=== PATIENT | male | born 1935 | race Caucasian/White ===

== ENCOUNTER 2018-04-22 22:05 | Observation (INO) ==
[2018-04-22] MEDS ORDERED: Sod Chloride 0.9% Inj 1,000 ML IV.SIG ONE (22:48)
--- NOTE | 2018-04-22 23:00 | ED ---
HPI General Chief Complaint: Syncope Stated Complaint: Confused Time Seen by Provider: 04/22/18 22:39 Source: patient Mode of arrival: EMS Limitations: altered mental status History of Present Illness HPI narrative: Patient is a 82 year old male who presents to the ER from [facility] for evaluation of syncope with altered mental status. As per [facility], patient is likely usually alert and oriented x4. Patient is currently at the [facility] for rehab after he had a left hip surgery. Patient has a chronic Gilliland catheter in place. As per nurses, patient was sitting in his wheelchair and "passed out for 30 seconds." Patient did not fall out of his wheelchair, he did not suffer any injuries to his head or neck. Reports that after his syncopal episode, patient appeared confused. He is usually alert and oriented x4, currently only alert and oriented x2. Patient is pleasantly confused at bedside, patient thinks that he has at [facility], he thinks that he is currently sitting in the chair but he is actually laying in a stretcher. Patient thinks that this year is 1958, he is only oriented to himself at this time. Patient with no complaints at this time. Related Data Home Medications Medication Instructions Recorded Confirmed No Known Home Medications 04/22/18 04/22/18 Allergies Allergy/AdvReac Type Severity Reaction Status Date / Time No Known Allergies Allergy Verified 04/22/18 22:48 Review of Systems ROS: all other systems reviewed are negative [facility] Medical History Medical History Anemia (Acute) Anxiety (Acute) BBB (bundle branch block) (Acute) Dementia (Acute) Depression (Acute) HTN (hypertension) (Acute) Hyperlipidemia (Acute) Hypokalemia (Acute) Left tibial fracture (Acute) Malignant neoplasm prostate (Acute) Muscle weakness (generalized) (Acute) Surgical History Surgical History History of left hip replacement (Acute) Social History Social History Substance History: No History of Abuse Second Hand Smoke Exposure: No Smoking Status: Never smoker How Often Do You Have a Drink Containing Alcohol: Never Recent Travel in [facility] [place] within the Last 8 Weeks: No Recent Out of Country Travel within the Last 8 Weeks: No Immunization History Tetanus Immunization: Unsure Exam Narrative Exam Narrative: GENERAL: Patient pleasantly confused SKIN: Focused skin assessment warm/dry. HEAD: Atraumatic. Normocephalic. EYES: Pupils equal and round. No scleral icterus. No injection or drainage. ENT: No nasal bleeding or discharge. Mucous membranes pink and moist. NECK: Trachea midline. No JVD. CARDIOVASCULAR: Regular rate and rhythm. No murmur appreciated. RESPIRATORY: No accessory muscle use. Clear to auscultation. Breath sounds equal bilaterally. GASTROINTESTINAL: Abdomen soft, non-tender, nondistended. Hepatic and splenic margins not palpable. GILLILAND CATHETER IN PLACE- CLOUDY URINE MUSCULOSKELETAL: No obvious deformities. No clubbing. No cyanosis. No edema. NEUROLOGICAL: Pleasantly confused. Motor grossly within normal limits. Normal speech. Course Initial Documented Vital Signs Temperature 98.1 F 04/22/18 22:22 Pulse Rate 71 04/22/18 22:22 Respiratory Rate 20 04/22/18 22:22 Blood Pressure 144/70 H 04/22/18 22:22 Pulse Oximetry 100 04/22/18 22:22 Last Documented Vital Signs Temperature 98.1 F 04/22/18 22:22 Pulse Rate 71 04/23/18 00:54 Respiratory Rate 18 04/22/18 22:30 Blood Pressure 132/61 04/22/18 22:30 Pulse Oximetry 100 04/23/18 00:54 Medical Decision Making [facility] Narrative Medical decision making narrative: During the course of the patients emergency department visit, the patients history, examination, and differential diagnosis were reviewed with the patient. The patient was placed on a human services case manager with oximetry and frequent blood pressure monitoring. The patient had an IV access obtained and blood work sent for analysis. The patients laboratory studies were reviewed WBC 8.3, hgb 10.6, hct 30.5, platelets 162 sodium 136, potassium 3.7, bun 28, cr 0.76, glucose 161 trop less than 0.02 UA with large leuk esterase, many white blood cells, few bacteria, urine culture was sent. CT the head shows no acute findings, x-ray of the chest shows no acute findings. Patient with syncopal episode and confusion - most likely from uti, will admit for observation Case reviewed with Dr. Alfaro who accepts pt to service Medical Screen Exam Complete: Yes Emergency Medical Condition: Yes Differential Diagnosis Differential Diagnosis: CVA, TIA, electrolyte abnormality, uti Medical Records Medical records reviewed: Yes I reviewed the patient's medical records. Lab Data Lab results reviewed: Yes I reviewed the patient's lab results. Result diagrams: 04/22/18 22:50 04/22/18 22:50 Lab Results 04/22/18 04/22/18 04/22/18 Range/Units 22:50 22:50 22:50 WBC 8.3 (4.0-11.0) th/mm3 RBC 3.58 L (4.50-5.90) mil/mm3 Hgb 10.6 L (13.0-17.0) gm/dL Hct 30.5 L (39.0-51.0) % MCV 85.2 (80.0-100.0) fL MCH 29.6 (27.0-34.0) pg MCHC 34.7 (32.0-36.0) % RDW 16.7 (11.6-17.2) % Plt Count 162 (150-450) th/mm3 MPV 7.9 (7.0-11.0) fL Neut % (Auto) 85.1 H (16.0-70.0) % Lymph % (Auto) 6.5 L (9.0-44.0) % [place] % (Auto) 7.5 (0.0-8.0) % Eos % (Auto) 0.6 (0.0-4.0) % Baso % (Auto) 0.3 (0.0-2.0) % Neut # (Auto) 7.0 (1.8-7.7) th/mm3 Lymph # (Auto) 0.5 L (1.0-4.8) th/mm3 [place] # (Auto) 0.6 (0.0-0.9) th/mm3 Eos # (Auto) 0.0 (0.0-0.4) th/mm3 Baso # (Auto) 0.0 (0.0-0.2) th/mm3 WBC Differential . Differential Comment Auto diff final PT 10.8 (9.8-11.6) sec INR 1.1 Ratio APTT 24.7 (24.3-30.1) sec Sodium 136 (136-145) meq/L Potassium 3.7 (3.5-5.1) meq/L Chloride 96 L (98-107) meq/L Carbon Dioxide 34.3 H (21.0-32.0) meq/L Anion Gap 6 (5-15) meq/L BUN 28 H (7-18) mg/dL Creatinine 0.76 (0.60-1.30) mg/dL Estimated GFR Greater than 89 (>89) mL/min Random Glucose 161 H (74-106) mg/dL Calcium 9.2 (8.5-10.1) mg/dL Magnesium 2.0 (1.5-2.5) mg/dL Troponin I Less than 0.02 L (0.02-0.05) ng/mL Urine Color (Yellw/Straw) Urine Clarity (Clear) Urine pH (5.0-8.5) Ur Specific [place] (1.002-1.035) Urine Protein (Neg-Trace) mg/dL Urine Glucose (UA) (Negative) mg/dL Urine Ketones (Negative) mg/dL Urine Occult Blood (Negative) Urine Nitrate (Negative) Urine Bilirubin (Negative) Urine Urobilinogen (Less than 2) mg/dL Ur Leukocyte Esterase (Negative) Urine RBC (0-3) /hpf Urine WBC (0-5) /hpf Urine WBC Clumps (None) Ur Squamous Epith Cells (0-5) /hpf Ur Renal Epithelial Cell (None) /hpf Urine Bacteria (None) /hpf Urine Mucus (Occasional) /lpf Urine Yeast (None) /hpf Micro UA Comment Ur Microscopic Review Urine Culture Comments 04/22/18 Range/Units 23:00 WBC (4.0-11.0) th/mm3 RBC (4.50-5.90) mil/mm3 Hgb (13.0-17.0) gm/dL Hct (39.0-51.0) % MCV (80.0-100.0) fL MCH (27.0-34.0) pg MCHC (32.0-36.0) % RDW (11.6-17.2) % Plt Count (150-450) th/mm3 MPV (7.0-11.0) fL Neut % (Auto) (16.0-70.0) % Lymph % (Auto) (9.0-44.0) % [place] % (Auto) (0.0-8.0) % Eos % (Auto) (0.0-4.0) % Baso % (Auto) (0.0-2.0) % Neut # (Auto) (1.8-7.7) th/mm3 Lymph # (Auto) (1.0-4.8) th/mm3 [place] # (Auto) (0.0-0.9) th/mm3 Eos # (Auto) (0.0-0.4) th/mm3 Baso # (Auto) (0.0-0.2) th/mm3 WBC Differential Differential Comment PT (9.8-11.6) sec INR Ratio APTT (24.3-30.1) sec Sodium (136-145) meq/L Potassium (3.5-5.1) meq/L Chloride (98-107) meq/L Carbon Dioxide (21.0-32.0) meq/L Anion Gap (5-15) meq/L BUN (7-18) mg/dL Creatinine (0.60-1.30) mg/dL Estimated GFR (>89) mL/min Random Glucose (74-106) mg/dL Calcium (8.5-10.1) mg/dL Magnesium (1.5-2.5) mg/dL Troponin I (0.02-0.05) ng/mL Urine Color Ramonita (Yellw/Straw) Urine Clarity Turbid H (Clear) Urine pH 6.0 (5.0-8.5) Ur Specific [place] 1.015 (1.002-1.035) Urine Protein 100 H (Neg-Trace) mg/dL Urine Glucose (UA) Negative (Negative) mg/dL Urine Ketones Negative (Negative) mg/dL Urine Occult Blood Large H (Negative) Urine Nitrate Negative (Negative) Urine Bilirubin Negative (Negative) Urine Urobilinogen 2.0 H (Less than 2) mg/dL Ur Leukocyte Esterase Large H (Negative) Urine RBC 177 H (0-3) /hpf Urine WBC (0-5) /hpf Urine WBC Clumps Many H (None) Ur Squamous Epith Cells 4 (0-5) /hpf Ur Renal Epithelial Cell 1 (None) /hpf Urine Bacteria Few H (None) /hpf Urine Mucus Many H (Occasional) /lpf Urine Yeast Many H (None) /hpf Micro UA Comment Cath-culture ind Ur Microscopic Review Not Reportable Urine Culture Comments Cath-cult indicated Imaging Data Attestation: I personally reviewed and interpreted this imaging study as follows : Radiologist's impression: Chest X-Ray 04/22/18 22:48 CONCLUSION: No infiltrates seen. Limited quality exam. Head CT 04/22/18 22:48 CONCLUSION: 1. No acute findings in the brain. 2. Moderate severity central and cortical atrophy. . ECG Data EKG Prior to Arrival: No Attestation: I personally reviewed and interpreted this ECG as follows: Prior ECG tracings: not available for review Interpretation: EKG at 2221: SR at 68bpm, qt/qtc: 425/443, rbbb Discharge Plan Discharge Disposition Patient Disposition: 30 Still Patient Discharge Condition Condition: Stable Discharge Details Diagnosis: Syncope, Acute UTI, Delirium Physicians Team ED Provider: Nani Quiroz Primary Care Provider: Adriano Denton Rxs /Orders / Referrals /Forms Prescriptions: No Action No Known Home Medications RF: 0 Discharge Interventions Interventions: Vital Signs Last Done: 04/22/18 22:30 Status ED Status: With Doctor
--- NOTE | 2018-04-22 23:25 | XR ---
EXAM DATE: 04/22/2018 11:16 PM EDT AGE/SEX: 82 years / Male INDICATIONS: Syncope. CLINICAL DATA: This is the patient's initial encounter. Patient reports that signs and symptoms have been present for 1 day and indicates a pain score of 0/10. MEDICAL/SURGICAL HISTORY: Hypertension. Dementia. Anemia. Bundle branch block. None. COMPARISON: No prior exams available for comparison. FINDINGS: Mild patient rotation towards the right and blurring of the image due to patient motion. The lungs ar e symmetrically aerated. No definite infiltrates seen. The heart is normal in size. Both hemidiaphrag ms are well delineated. CONCLUSION: No infiltrates seen. Limited quality exam. Electronically signed by: Humphrey Timmons MD 04/22/2018 11:24 PM EDT
[2018-04-22 23:34] LABS: Baso % (Auto) 0.3 % (0.0-2.0); Eos % (Auto) 0.6 % (0.0-4.0); Hematocrit 30.5 % (39.0-51.0); Hemoglobin 10.6 gm/dL (13.0-17.0); Lymph # (Auto) 0.5 th/mm3 (1.0-4.8); Lymph % (Auto) 6.5 % (9.0-44.0); Mean Corpuscular HGB Conc 34.7 % (32.0-36.0); Mean Corpuscular Hemoglobin 29.6 pg (27.0-34.0); Mean Corpuscular Volume 85.2 fL (80.0-100.0); Mean Platelet Volume 7.9 fL (7.0-11.0); Mono # (Auto) 0.6 th/mm3 (0.0-0.9); Mono % (Auto) 7.5 % (0.0-8.0); Neut % (Auto) 85.1 % (16.0-70.0); Platelet Count 162 th/mm3 (150-450); Red Blood Count 3.58 mil/mm3 (4.50-5.90); Red Cell Distribution Width 16.7 % (11.6-17.2); White Blood Count 8.3 th/mm3 (4.0-11.0)
[2018-04-22 23:46] LABS: Activated Partial Thrombo Time 24.7 sec (24.3-30.1); INR 1.1 Ratio; Prothrombin Time 10.8 sec (9.8-11.6)
[2018-04-22 23:47] LABS: Bacteria,Urine Few /hpf; Bilirubin,Urine Negative (Negative); Clarity,Urine Turbid (Clear); Color,Urine Amber (Yellw/Straw); Glucose,Urine (UA) Negative (Negative); Leukocyte Esterase,Urine Large (Negative); Mucus,Urine Many /lpf (Occasional); Nitrite,Urine Negative (Negative); Renal Epithelial Cells,Urine 1 /hpf; Specific Gravity,Urine 1.015 (1.002-1.035); Squamous Epithelial Cell,Urine 4 /hpf (0-5)
--- NOTE | 2018-04-22 23:50 | CT ---
EXAM DATE: 04/22/2018 11:37 PM EDT AGE/SEX: 82 years / Male INDICATIONS: Altered mental status; possible syncopal episode. CLINICAL DATA: This is the patient's initial encounter. Patient reports that signs and symptoms have been present for 1 day and indicates a pain score of Nonresponsive. MEDICAL/SURGICAL HISTORY: Carcinoma, prostatic. Anemia. Cardiovascular disease. Dementia None. RADIATION DOSE: 66.34 CTDI (mGy) COMPARISON: No prior exams available for comparison. TECHNIQUE: CT of the head without contrast. Using automated exposure control and adjustment of the mA and/or kV according to patient size, radiation dose was kept as low as reasonably achievable to ob tain optimal diagnostic quality images. DICOM format image data is available electronically for revi ew and comparison. FINDINGS: Cerebrum: The ventricles, sulci, and basal cisterns are prominent, characteristic of moderate severi ty central cortical atrophy. There is also hypodensity in the supratentorial white matter, characteri stic of ischemic demyelination.. No evidence of midline shift, mass lesion, hemorrhage or acute infa rction. No extraaxial fluid collections are seen. Posterior Fossa: The cerebellum and brainstem are intact. The 4th ventricle is midline. The cerebe llopontine angle is unremarkable. Extracranial: The visualized portion of the orbits is intact. Skull: The calvaria is intact. No evidence of skull fracture. CONCLUSION: 1. No acute findings in the brain. 2. Moderate severity central and cortical atrophy. . Electronically signed by: Humphrey Timmons MD 04/22/2018 11:49 PM EDT
[2018-04-23 00:01] LABS: Anion Gap 6 meq/L (5-15); Blood Urea Nitrogen 28 mg/dL (7-18); Calcium 9.2 mg/dL (8.5-10.1); Carbon Dioxide 34.3 meq/L (21.0-32.0); Chloride 96 meq/L (98-107); Glomerular Filtration Rate Greater Than 89 mL/min (>89); Glucose,Random 161 mg/dL (74-106); Potassium 3.7 meq/L (3.5-5.1); Sodium 136 meq/L (136-145)
[2018-04-23] MEDS ORDERED: Bisacodyl 10 MG Supp RECTAL PRN (01:24)
[2018-04-23] MEDS: Sod Chloride 0.9% Inj 1,000 ML IV.CONT SCH ×2 (02:44→17:48)
--- NOTE | 2018-04-23 04:04 | P.HPIM ---
History of Present Illness Primary Care Physician: Adriano Denton MD History of Present Illness: 82-year-old male retirement resident with history of dementia, recent history of left hip surgery, chronic Yanez catheter, who presents with episode of syncope and altered mental status from [facility] and rehab. Patient was reported to have passed out in his wheelchair for 30 seconds without falling out of wheelchair. Patient noted subsequently to be confused. History obtained from discussion with the ER physician and chart review patient is currently pleasantly confused. Denies any pain. Does not know why he is here. Says he is at [facility]. Review of Systems unobtainable due to mental condition PMFSH - History History Provided By: Senior Technical Recruiter / EMT - Medical History Medical History: Medical History (Last Reviewed 04/23/18 @ 03:56 by Pj Alfaro MD) Anemia Anxiety BBB (bundle branch block) Dementia Depression HTN (hypertension) Hyperlipidemia Hypokalemia Left tibial fracture Malignant neoplasm prostate Muscle weakness (generalized) - Surgical History Surgical History: Surgical History (Last Reviewed 04/23/18 @ 03:56 by Pj Alfaro MD) History of left hip replacement - Family History Family History: Family History (Last Updated 04/23/18 @ 03:56 by Pj Alfaro MD) Other Family circumstance - Tobacco History Second Hand Smoke Exposure: No Smoking Status: Never smoker - Alcohol History How Often Do You Have a Drink Containing Alcohol: Never - Substance Use History Substance History: No History of Abuse - Travel History Recent Travel in the [place] Within the Last 8 Weeks: No Recent Travel Out of the Country Within the Last 8 Weeks: No - Immunization History Tetanus Immunization: Unsure Medications and Allergies Active Medications: Active Medications Al Hydroxide/Mg Hydroxide (Milk Of Magnesia Liq) 30 ml PO Q12H PRN PRN Reason: Mild Constipation Bisacodyl (Dulcolax Supp) 10 mg RECTAL DAILY PRN PRN Reason: SEVERE CONSITIPATION Ceftriaxone Sodium 1,000 mg/ (Sodium Chloride) 100 mls @ 200 mls/hr IV.SIG Q24H REHAN Sodium Chloride (Ns Inj) 1,000 mls @ 75 mls/hr IV.CONT .[id number] REHAN Last Admin: 04/23/18 02:44 Dose: 75 mls/hr Lactulose (Lactulose Liq) 30 ml PO DAILY PRN PRN Reason: SEVERE CONSITIPATION Sennosides (Senokot) 17.2 mg PO Q12H PRN PRN Reason: Moderate Constipation Sodium Chloride (Ns Flush) 2 ml IV.FLUSH PRN PRN PRN Reason: FLUSH AFTER USING IV ACCESS Allergies Allergy/AdvReac Type Severity Reaction Status Date / Time No Known Allergies Allergy Verified 04/22/18 22:48 Home Medications Medication Instructions Recorded Confirmed Type amlodipine 10 mg PO DAILY 04/23/18 04/23/18 History ascorbic acid (vitamin C) 500 mg PO DAILY NEB 04/23/18 04/23/18 History ascorbic acid (vitamin C) [Vitamin 250 mg PO BID 04/23/18 04/23/18 History C] aspirin 81 mg PO DAILY 04/23/18 04/23/18 History atorvastatin 10 mg PO DAILY 04/23/18 04/23/18 History docusate sodium 100 mg PO DAILY 04/23/18 04/23/18 History duloxetine 20 mg PO BID 04/23/18 04/23/18 History lorazepam [Ativan] 0.5 mg PO HS 04/23/18 04/23/18 History losartan-hydrochlorothiazide 1 tab PO DAILY 04/23/18 04/23/18 History memantine-donepezil [Namzaric] 1 cap PO DAILY 04/23/18 04/23/18 History metoprolol tartrate 12.5 mg PO BID 04/23/18 04/23/18 History omega 4-sfd-xuc-fish oil [Fish Oil] 1,000 mg PO DAILY 04/23/18 04/23/18 History potassium chloride 10 meq PO DAILY 04/23/18 04/23/18 History zinc sulfate 220 mg PO DAILY 04/23/18 04/23/18 History Exam Vital signs: Vital Signs 04/22/18 22:22 04/22/18 22:30 04/23/18 00:54 Temperature 98.1 F Pulse Rate 71 74 71 Respiratory Rate 20 18 Blood Pressure 144/70 H 132/61 Pulse Oximetry 100 98 100 04/23/18 02:40 Temperature 97.7 F Pulse Rate 71 Respiratory Rate 18 Blood Pressure 142/63 H Pulse Oximetry 95 Intake & Output 04/22/18 04/22/18 04/23/18 06:59 18:59 06:59 Intake Total 1100 / 1100 Balance 1100 / 1100 Weight 90.718 kg Intake: IV 1100 / 1100 NS Inj 1,000 ML @ Wide Open IV. 1000 / 1000 SIG BOLUS ONE Rx#:[id number] Rocephin Inj 1,000 MG In NS Inj 100 / 100 100 ML @ 200 mls/hr IV.SIG ONCE ONE Rx#:[id number] Other: Date of Last Bowel Movement 04/23/18 Narrative: GENERAL: Patient lying in bed. Appears comfortable. Alert. Oriented x2 SKIN: Warm and dry. HEAD: Atraumatic. Normocephalic. EYES: Pupils equal and round. No scleral icterus. No injection or drainage. ENT: No nasal bleeding or discharge. Mucous membranes pink and moist. NECK: Trachea midline. No JVD. CARDIOVASCULAR: Regular rate and rhythm. RESPIRATORY: No accessory muscle use. Clear to auscultation. Breath sounds equal bilaterally. GASTROINTESTINAL: Abdomen soft, non-tender, nondistended. Hepatic and splenic margins not palpable. MUSCULOSKELETAL: Extremities without clubbing, cyanosis, or edema. No obvious deformities. Patient with subcentimeter sacral ulcer NEUROLOGICAL: Awake and alert. No obvious cranial nerve deficits. Motor grossly within normal limits. Five out of 5 muscle strength in the arms and legs. Normal speech. PSYCHIATRIC: Appropriate mood and affect; insight and judgment normal. Results - Labs CBC & Chem 7: 04/22/18 22:50 04/22/18 22:50 Labs: Short CBC 04/22/18 Range/Units 22:50 WBC 8.3 (4.0-11.0) th/mm3 Hgb 10.6 L (13.0-17.0) gm/dL Hct 30.5 L (39.0-51.0) % Plt Count 162 (150-450) th/mm3 BMP 04/22/18 22:50 Sodium 136 Potassium 3.7 Chloride 96 L Carbon Dioxide 34.3 H BUN 28 H Creatinine 0.76 Calcium 9.2 Cardiac Enzymes 04/22/18 Range/Units 22:50 Troponin I Less than 0.02 L (0.02-0.05) ng/mL Urine 04/22/18 Range/Units 23:00 Urine Color Ramonita (Yellw/Straw) Urine Clarity Turbid H (Clear) Urine pH 6.0 (5.0-8.5) Ur Specific [place] 1.015 (1.002-1.035) Urine Protein 100 H (Neg-Trace) mg/dL Urine Glucose (UA) Negative (Negative) mg/dL - Imaging Impressions Chest X-Ray 04/22/18 22:48 CONCLUSION: No infiltrates seen. Limited quality exam. Head CT 04/22/18 22:48 CONCLUSION: 1. No acute findings in the brain. 2. Moderate severity central and cortical atrophy. . Caprini VTE Risk Assessment Caprini VTE Risk Assessment: Moderate/High Risk (score >= 2) Caprini Risk Assessment Model: Point Value = 1 Point Value = 2 Point Value = 3 Point Value = 5 Age 41-60 Minor surgery BMI > 25 kg/m2 Swollen legs Varicose veins or History of unexplained or recurrent spontaneous Oral contraceptives or hormone replacement Sepsis (< 1 month) Serious lung disease, including pneumonia (< 1 month) Abnormal pulmonary function Acute myocardial infarction Congestive heart failure (< 1 month) History of inflammatory bowel disease Medical patient at bed rest Age 61-74 Arthroscopic surgery Major open surgery (> 45 min) Laparoscopic surgery (> 45 min) Malignancy Confined to bed (> 72 hours) Immobilizing plaster cast Central venous access Age >= 75 History of VTE Family history of VTE Factor V Leiden Prothrombin [id number] Lupus anticoagulant Anticardiolipin antibodies Elevated serum homocysteine Heparin-induced thrombocytopenia Other congenital or acquired thrombophilia Stroke (< 1 month) Elective arthroplasty Hip, pelvis, or leg fracture Acute spinal cord injury (< 1 month) Prophylaxis Regimen: Total Risk Factor Score Risk Level Prophylaxis Regimen 0-1 Low Early ambulation 2 Moderate Order ONE of the following: *Sequential Compression Device (SCD) *Heparin 5000 units SQ BID 3-4 Higher Order ONE of the following medications: *Heparin 5000 units SQ TID *Enoxaparin/Lovenox 40 mg SQ daily (WT < 150 kg, CrCl > 30 mL/min) *Enoxaparin/Lovenox 30 mg SQ daily (WT < 150 kg, CrCl > 10-29 mL/min) *Enoxaparin/Lovenox 30 mg SQ BID (WT < 150 kg, CrCl > 30 mL/min) AND/OR *Sequential Compression Device (SCD) 5 or more Highest Order ONE of the following medications: *Heparin 5000 units SQ TID (Preferred with Epidurals) *Enoxaparin/Lovenox 40 mg SQ daily (WT < 150 kg, CrCl > 30 mL/min) *Enoxaparin/Lovenox 30 mg SQ daily (WT < 150 kg, CrCl > 10-29 mL/min) *Enoxaparin/Lovenox 30 mg SQ BID (WT < 150 kg, CrCl > 30 mL/min) AND *Sequential Compression Device (SCD) Assessment and Plan - Plan //Altered mental status -History of dementia Likely secondary to significant UTI. -CT head with no acute findings. Does show chronic atrophy Treat UTI as below. //UTI //Chronic Yanez. Grossly positive urinalysis, white blood cell clumps. -Yanez exchanged in the ER. Start on ceftriaxone. Follow-up urine culture. //Hypertension. Chronic. Blood pressure acceptable. Continue home medications as necessary. //Dementia. Chronic with acute worsening. Continue home medications. Discussed Condition With: Patient, nurse, ED physician.
[2018-04-23] MEDS: Metoprolol Tartrate 25 MG Tablet PO SCH ×2 (08:59→22:03)
[2018-04-23] MEDS: amLODIPine 10 MG Tablet PO SCH (08:59)
[2018-04-23] MEDS ORDERED: MEMANTINE DONEPEZIL PO SCH (09:00)
[2018-04-23] MEDS ORDERED: Non-Formulary Drug (Losartan-Hydrochlorothiazide [Losartan-Hydrochlorothiazide] 1 TAB) PO SCH (09:00)
--- NOTE | 2018-04-23 14:24 | ECG ---
Date Performed: 04/22/2018 Time Performed: 22:21:40 PTAGE: 82 years EKG: Sinus rhythm WITH SINUS ARRHYTHMIA RIGHT BUNDLE BRANCH BLOCK ABNORMAL ECG NO PREVIOUS TRACING DOCTOR: Marvin Tai Interpretating Date/Time 04/23/2018 14:22:43
[2018-04-24] MEDS: Sod Chloride 0.9% Inj 1,000 ML IV.CONT SCH ×2 (04:48→20:01)
[2018-04-24 05:40] LABS: Baso % (Auto) 0.4 % (0.0-2.0); Eos # (Auto) 0.1 th/mm3 (0.0-0.4); Eos % (Auto) 2.2 % (0.0-4.0); Hematocrit 25.7 % (39.0-51.0); Hemoglobin 9.1 gm/dL (13.0-17.0); Lymph # (Auto) 0.5 th/mm3 (1.0-4.8); Lymph % (Auto) 10.5 % (9.0-44.0); Mean Corpuscular HGB Conc 35.6 % (32.0-36.0); Mean Corpuscular Hemoglobin 29.8 pg (27.0-34.0); Mean Corpuscular Volume 83.5 fL (80.0-100.0); Mean Platelet Volume 7.5 fL (7.0-11.0); Mono # (Auto) 0.4 th/mm3 (0.0-0.9); Neut # (Auto) 3.8 th/mm3 (1.8-7.7); Neut % (Auto) 78.9 % (16.0-70.0); Platelet Count 136 th/mm3 (150-450); Red Blood Count 3.07 mil/mm3 (4.50-5.90); Red Cell Distribution Width 16.5 % (11.6-17.2); White Blood Count 4.8 th/mm3 (4.0-11.0)
[2018-04-24 06:11] LABS: Alanine Aminotransferase 14 U/L (12-78); Albumin 2.2 g/dL (3.4-5.0); Anion Gap 7 meq/L (5-15); Aspartate Aminotransferase 21 U/L (15-37); Blood Urea Nitrogen 13 mg/dL (7-18); Calcium 9.1 mg/dL (8.5-10.1); Carbon Dioxide 29.3 meq/L (21.0-32.0); Chloride 101 meq/L (98-107); Glomerular Filtration Rate Greater Than 89 mL/min (>89); Glucose,Random 129 mg/dL (74-106); Potassium 3.2 meq/L (3.5-5.1); Sodium 137 meq/L (136-145)
[2018-04-24 06:15] LABS: Alkaline Phosphatase 109 U/L (45-117); Total Protein 5.3 g/dL (6.4-8.2)
[2018-04-24] MEDS: amLODIPine 10 MG Tablet PO SCH (08:56)
[2018-04-24] MEDS: Metoprolol Tartrate 25 MG Tablet PO SCH ×2 (08:57→20:01)
--- NOTE | 2018-04-24 10:27 | P.PN ---
Subjective Interval history: In bed still confused however pleasant. Since he is in [place] at the rehab place. He pulled Bean yesterday and patient is with hematuria however fairly good urine output. No fever or chills. Denies any chest pain or shortness of breath. He is resting in bed and appears to not acute distress at this time. was visiting earlier. Physical Exam Vital signs: Vital Signs 04/23/18 12:00 04/23/18 16:00 04/23/18 19:40 Temperature 97.7 F 97.6 F 97.6 F Pulse Rate 70 73 76 Respiratory Rate 20 20 19 Blood Pressure 93/49 L 150/70 H 138/65 Pulse Oximetry 98 97 98 04/23/18 20:00 04/24/18 00:00 04/24/18 04:00 Temperature 98.4 F 98.1 F Pulse Rate 60 60 Respiratory Rate 19 18 Blood Pressure 129/63 154/67 H Pulse Oximetry 98 97 98 04/24/18 08:30 Temperature 97.5 F L Pulse Rate 62 Respiratory Rate 14 Blood Pressure 161/67 H Pulse Oximetry 94 L Intake & Output 04/23/18 04/24/18 04/24/18 18:59 06:59 18:59 Intake Total 1000 / 1000 1100 / 1100 Output Total 450 / 450 1200 / 1200 Balance 550 / 550 1100 / 1100 -1200 / -1200 Intake: IV 1000 / 1000 1100 / 1100 NS Inj 1,000 ML @ 75 mls/hr IV. 1000 / 1000 1000 / 1000 CONT .[id number] [facility] Rx#:[id number] Rocephin Inj 1,000 MG In NS Inj 100 / 100 100 ML @ 200 mls/hr IV.SIG Q24H [facility] Rx#:[id number] Output: Urine Amount (Catheter) 450 / 450 1200 / 1200 Indwelling Urethral Catheter 450 / 450 1200 / 1200 Other: Date of Last Bowel Movement 04/23/18 04/23/18 Narrative: GENERAL: Patient lying in bed. Appears comfortable. Alert. Oriented x2 CARDIOVASCULAR: Regular rate and rhythm. RESPIRATORY: No accessory muscle use. Clear to auscultation. Breath sounds equal bilaterally. GASTROINTESTINAL: Abdomen soft, non-tender, nondistended. Hepatic and splenic margins not palpable. MUSCULOSKELETAL: Extremities without clubbing, cyanosis, or edema. No obvious deformities. Patient with subcentimeter sacral ulcer NEUROLOGICAL: Awake and alert. No obvious cranial nerve deficits. Motor grossly within normal limits. Five out of 5 muscle strength in the arms and legs. Normal speech. PSYCHIATRIC: Appropriate mood and affect; insight and judgment normal. - Urinary Catheter Management Indwelling Urethral Catheter Cath placed during this visit: yes Reason for continuing: Gross Hematuria Insertion date: 04/22/18 Insertion time: 23:00 Results - Labs CBC & Chem 7: 04/24/18 05:15 04/24/18 05:15 Laboratory Results - last 24 hr 04/22/18 04/24/18 04/24/18 23:00 05:15 05:15 WBC 4.8 RBC 3.07 L Hgb 9.1 L Hct 25.7 L MCV 83.5 MCH 29.8 MCHC 35.6 RDW 16.5 Plt Count 136 L MPV 7.5 Neut % (Auto) 78.9 H Lymph % (Auto) 10.5 [place] % (Auto) 8.0 Eos % (Auto) 2.2 Baso % (Auto) 0.4 Neut # (Auto) 3.8 Lymph # (Auto) 0.5 L [place] # (Auto) 0.4 Eos # (Auto) 0.1 Baso # (Auto) 0.0 WBC Differential . Differential Comment Auto diff final Sodium 137 Potassium 3.2 L Chloride 101 Carbon Dioxide 29.3 Anion Gap 7 BUN 13 Creatinine 0.44 L Estimated GFR Greater than 89 Random Glucose 129 H Calcium 9.1 Total Bilirubin 0.6 AST 21 ALT 14 Alkaline Phosphatase 109 Total Protein 5.3 L Albumin 2.2 L Urine Color Ramonita Urine Clarity Turbid H Urine pH 6.0 Ur Specific [place] 1.015 Urine Protein 100 H Urine Glucose (UA) Negative Urine Ketones Negative Urine Occult Blood Large H Urine Nitrate Negative Urine Bilirubin Negative Urine Urobilinogen 2.0 H Ur Leukocyte Esterase Large H Urine RBC 177 H Urine WBC Urine WBC Clumps Many H Ur Squamous Epith Cells 4 Ur Renal Epithelial Cell 1 Urine Bacteria Few H Urine Mucus Many H Urine Yeast Many H Micro UA Comment Cath-culture ind Urine Culture Comments Cath-cult indicated Microbiology 04/22/18 23:00 Catheterized Urine Urine Culture - Final Escherichia coli Multidrug Resistant Assessment and Plan - Plan Altered mental status -History of dementia Likely secondary to significant UTI. -CT head with no acute findings. Does show chronic atrophy Treat UTI as below. UTI with Chronic [place]. Grossly positive urinalysis, white blood cell clumps. -Bean exchanged in the ER. Start on ceftriaxone. Follow-up urine culture with E coli - Continue IV as patient still confused Hematuria from traumatic bean . Patient did pull bean yesterday 04/23. Has adequate urine UP , monitor Will consult urology if need Monitor H.H, so far stable Vision change. Patient noted with anisocoria . repeat CT head w/o contrast . Consult neurology for further evaluation. patient doesn't have a h/o stroke. neuro checks Cont IVF Telemetry Hypertension. Chronic. Blood pressure acceptable. Continue home medications as necessary. Hypokalemia: Replace and continue to monitor. Dementia. Chronic with acute worsening. Continue home medications. Discussed Condition With: Patient, nurse
[2018-04-24] MEDS: Magnesium Oxide 400 MG Tablet PO SCH (13:04)
--- NOTE | 2018-04-24 17:02 | CT ---
EXAM DATE: 04/24/2018 4:59 PM EDT AGE/SEX: 82 years / Male INDICATIONS: Visual disturbances. CLINICAL DATA: This is the patient's initial encounter. Patient reports that signs and symptoms have been present for 1 day and indicates a pain score of 3/10. MEDICAL/SURGICAL HISTORY: Anemia. Hypertension. Malignant neoplasm. None. RADIATION DOSE: 56.35 CTDI (mGy) COMPARISON: [facility] [place]AST, 04/22/2018. . TECHNIQUE: CT of the head without contrast. Using automated exposure control and adjustment of the mA and/or kV according to patient size, radiation dose was kept as low as reasonably achievable to ob tain optimal diagnostic quality images. DICOM format image data is available electronically for revi ew and comparison. FINDINGS: The examination demonstrates cortical atrophy and microvascular ischemic demyelinative change. There is no acute intracranial hemorrhage. No abnormal extra-axial fluid collections are seen. No mass lesi on is identified. The appearance of the posterior fossa is unremarkable. The orbits are intact. The sinuses are clear. The mastoid air cells are clear. No acute skull fractur e is seen. CONCLUSION: 1. Cortical atrophy and microvascular ischemic demyelinative change. This is stable compared to prev ious of 04/22/2018. Electronically signed by: Eh Dias MD 04/24/2018 5:01 PM EDT
--- NOTE | 2018-04-24 19:59 | MB ---
cc: Elisa Sanchez MD DATE: 04/24/2018 REASON FOR CONSULTATION: Anisocoria. HISTORY OF PRESENT ILLNESS: This is an 82-year-old man with dementia who comes in with an episode of syncope and altered mental status from a senior care. He reportedly passed out in his wheelchair for 30 seconds, confused. He has a past medical history of dementia, bundle branch block, anxiety, depression, hypertension, hyperlipidemia, left hip surgery recently. I am asked to evaluate him for anisocoria. The right eye is slightly larger than the left. The patient does state he has had cataract surgery. He denies any loss of vision, double vision or any pain of the eyes. PHYSICAL EXAMINATION: VITAL SIGNS: Temperature 98.2, pulse 64, respiratory rate 20, blood pressure 117/59. NEUROLOGIC: He is awake and alert. He knows himself and he thinks he is in [place]. His right pupil is 1 mm, reactive. Left pupil is 0.5, reactive. Extraocular muscles are intact. Visual thurman seem full. There is no facial asymmetry. Speech is normal. No ptosis. Motor georges, I do not appreciate any significant weakness. There may be some residual from the left hip. His left leg is externally deviated but DTRs are normal. Toes are downgoing. Gait is withheld. LABORATORY DATA: Reviewed. His white count is 4.8, hemoglobin 9.1, platelets 136,000. Coags are normal. Chemistry: Potassium 3.2, glucose 129, albumin 2.2. Urine has a UTI with E. coli, multidrug resistant. IMPRESSION: Anisocoria. It may be multifactorial. I will just get an MRI of the brain. His vision seems to be fine. Continue him on baby aspirin. He does not have any stroke-like symptoms. Certainly, he can be followed as an outpatient with ophthalmology. MD CHAD Hernández/sonia , 05:57 PM , 06:04 PM
[2018-04-25] MEDS: Sod Chloride 0.9% Inj 1,000 ML IV.CONT SCH (06:51)
[2018-04-25 07:26] LABS: Baso % (Auto) 0.6 % (0.0-2.0); Eos # (Auto) 0.1 th/mm3 (0.0-0.4); Eos % (Auto) 2.5 % (0.0-4.0); Hemoglobin 9.5 gm/dL (13.0-17.0); Lymph # (Auto) 0.6 th/mm3 (1.0-4.8); Lymph % (Auto) 12.4 % (9.0-44.0); Mean Corpuscular HGB Conc 35.1 % (32.0-36.0); Mean Corpuscular Hemoglobin 29.2 pg (27.0-34.0); Mean Corpuscular Volume 83.2 fL (80.0-100.0); Mean Platelet Volume 7.8 fL (7.0-11.0); Mono # (Auto) 0.3 th/mm3 (0.0-0.9); Mono % (Auto) 6.7 % (0.0-8.0); Neut # (Auto) 3.6 th/mm3 (1.8-7.7); Neut % (Auto) 77.8 % (16.0-70.0); Platelet Count 153 th/mm3 (150-450); Red Blood Count 3.24 mil/mm3 (4.50-5.90); Red Cell Distribution Width 16.8 % (11.6-17.2); White Blood Count 4.6 th/mm3 (4.0-11.0)
[2018-04-25 07:45] LABS: Anion Gap 6 meq/L (5-15); Blood Urea Nitrogen 10 mg/dL (7-18); Calcium 8.9 mg/dL (8.5-10.1); Carbon Dioxide 29.9 meq/L (21.0-32.0); Chloride 101 meq/L (98-107); Glomerular Filtration Rate Greater Than 89 mL/min (>89); Glucose,Random 105 mg/dL (74-106); Magnesium 1.7 mg/dL (1.5-2.5); Potassium 3.5 meq/L (3.5-5.1); Sodium 137 meq/L (136-145)
[2018-04-25] MEDS: Magnesium Oxide 400 MG Tablet PO SCH (08:47)
[2018-04-25] MEDS: amLODIPine 10 MG Tablet PO SCH (08:47)
[2018-04-25] MEDS: Metoprolol Tartrate 25 MG Tablet PO SCH ×2 (08:48→21:21)
--- NOTE | 2018-04-25 12:48 | MR ---
EXAM DATE: 04/25/2018 12:43 PM EDT AGE/SEX: 82 years / Male INDICATIONS: Altered mental status. Left eye pupil is smaller than the right. CLINICAL DATA: This is the patient's subsequent encounter. Patient reports that signs and symptoms h ave been present for 3 days and indicates a pain score of 0/10. MEDICAL/SURGICAL HISTORY: Dementia. Hypertension. Carcinoma, prostatic. . Left hip replacemen t. COMPARISON: [facility] – [place], [place] HEAD W/O CONTRAST, 04/24/2018. . TECHNIQUE: Multiplanar, multisequence examination of the brain was performed without contrast. FINDINGS: Motion artifact. Cerebrum: The ventricles are prominent. Areas of high FLAIR abnormality are seen in the periventricu lar white matter. No evidence of midline shift, mass lesion, hemorrhage or acute infarction. No ext raaxial fluid collections are seen. The pituitary gland and suprasellar cistern are normal in config uration. White Matter: Scattered T2 signal abnormalities are seen in the white matter. Posterior Fossa: The cerebellum and brainstem are intact. The 4th ventricle is midline. The cerebel lopontine angle is unremarkable. The cerebellar tonsils are normal in position. Diffusion Imaging: No focal areas of restricted diffusion are seen. No evidence of acute infarction . Extracranial: The visualized portions of the orbits and paranasal sinuses are unremarkable. CONCLUSION: 1. Cerebral atrophy and chronic ischemic small vessel vasculopathy. 2. No acute infarction. Electronically signed by: Alex Jean MD 04/25/2018 12:47 PM EDT
--- NOTE | 2018-04-25 13:19 | P.PN ---
Subjective Interval history: The patient is in bed he feels very tired. Says he has some pain in his buttocks at the wounds. No fever or chills. Still with change in vision patient needs to follow-up with ophthalmology as outpatient. Plan for MRI of the brain. The patient was. Denies having chest pain or shortness of breath. No abdominal pain. Still pleasantly confused. also at bedside Physical Exam Vital signs: Vital Signs 04/24/18 16:10 04/24/18 19:51 04/24/18 21:01 Temperature 98.2 F 98.6 F Pulse Rate 64 63 Respiratory Rate 20 18 Blood Pressure 117/59 L 145/66 H Pulse Oximetry 97 97 95 04/25/18 00:00 04/25/18 04:00 04/25/18 07:10 Temperature 98.8 F 98.7 F Pulse Rate 69 60 62 Respiratory Rate 18 17 18 Blood Pressure 144/65 H 136/65 156/68 H Pulse Oximetry 97 97 96 04/25/18 11:14 Temperature 98.4 F Pulse Rate 67 Respiratory Rate 18 Blood Pressure 141/62 H Pulse Oximetry 96 Intake & Output 04/24/18 04/25/18 04/25/18 18:59 06:59 18:59 Intake Total 1220 / 1220 460 / 460 Output Total 1625 / 1625 350 / 350 Balance -405 / -405 110 / 110 Intake: IV 1000 / 1000 100 / 100 NS Inj 1,000 ML @ 75 mls/hr IV. 1000 / 1000 CONT .[id number] [facility] Rx#:[id number] Rocephin Inj 1,000 MG In NS Inj 100 / 100 100 ML @ 200 mls/hr IV.SIG Q24H [facility] Rx#:[id number] Oral 220 / 220 360 / 360 Output: Urine Amount (Catheter) 1625 / 1625 350 / 350 Indwelling Urethral Catheter 1625 / 1625 350 / 350 Other: Date of Last Bowel Movement 04/23/18 Narrative: GENERAL: Patient lying in bed. Appears comfortable. Alert. Oriented x2 CARDIOVASCULAR: Regular rate and rhythm. HEENT: Anisocoria. RESPIRATORY: No accessory muscle use. Clear to auscultation. Breath sounds equal bilaterally. GASTROINTESTINAL: Abdomen soft, non-tender, nondistended. Hepatic and splenic margins not palpable. MUSCULOSKELETAL: Extremities without clubbing, cyanosis, or edema. No obvious deformities. Patient with subcentimeter sacral ulcer NEUROLOGICAL: Awake and alert. No obvious cranial nerve deficits. Motor grossly within normal limits. Five out of 5 muscle strength in the arms and legs. Normal speech. PSYCHIATRIC: Appropriate mood and affect; insight and judgment normal. - Urinary Catheter Management Indwelling Urethral Catheter Cath placed during this visit: yes Reason for continuing: Gross Hematuria Insertion date: 04/22/18 Insertion time: 23:00 Results - Labs CBC & Chem 7: 04/25/18 06:40 04/25/18 06:40 Laboratory Results - last 24 hr 04/25/18 04/25/18 06:40 06:40 WBC 4.6 RBC 3.24 L Hgb 9.5 L Hct 27.0 L MCV 83.2 MCH 29.2 MCHC 35.1 RDW 16.8 Plt Count 153 MPV 7.8 Neut % (Auto) 77.8 H Lymph % (Auto) 12.4 [place] % (Auto) 6.7 Eos % (Auto) 2.5 Baso % (Auto) 0.6 Neut # (Auto) 3.6 Lymph # (Auto) 0.6 L [place] # (Auto) 0.3 Eos # (Auto) 0.1 Baso # (Auto) 0.0 WBC Differential . Differential Comment Auto diff final Sodium 137 Potassium 3.5 Chloride 101 Carbon Dioxide 29.9 Anion Gap 6 BUN 10 Creatinine 0.43 L Estimated GFR Greater than 89 Random Glucose 105 Calcium 8.9 Magnesium 1.7 - Imaging Impressions Head CT 04/24/18 00:00 CONCLUSION: 1. Cortical atrophy and microvascular ischemic demyelinative change. This is stable compared to previous of 04/22/2018. Head MRI 04/25/18 07:04 CONCLUSION: 1. Cerebral atrophy and chronic ischemic small vessel vasculopathy. 2. No acute infarction. Assessment and Plan - Plan Altered mental status -History of dementia Likely secondary to significant UTI. -CT head with no acute findings. Does show chronic atrophy Treat UTI as below. UTI with Chronic Bean. Grossly positive urinalysis, white blood cell clumps. -Bean exchanged in the ER. Start on ceftriaxone. Follow-up urine culture with E coli - Continue IV as patient still confused Hematuria from traumatic bean . Patient did pull bean yesterday 04/23. Has adequate urine UP , monitor Will consult urology if need Monitor H.H, so far stable Vision change. Patient noted with anisocoria. repeat CT head w/o contrast . Consult neurology for further evaluation. patient doesn't have a h/o stroke. neuro checks Cont gentle IVF Telemetry Plan for MRI of the brain Patient also to follow-up with ophthalmology as outpatient Hypertension. Chronic. Blood pressure acceptable. Continue home medications as necessary. Hypokalemia: Replace and continue to monitor. Dementia. Chronic with acute worsening. Continue home medications. Chronic pressure wounds present on admission. Turn q@hrs . Consult wound care Discussed Condition With: Patient, nurse, at bedside. Discharge plan pending the improvement. Plan for MRI brain, patient with anisocoria. Possible discharge in 1 to days if able to eat
--- NOTE | 2018-04-25 14:29 | P.PNWCN ---
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 Apply hydrogel to fill in wound with 100% fascia visualized in wound base (to keep fascia moist). Apply skin prep to periwound (skin surrounding wound). Place cover dressing of Optifoam gentle border. Date dressing Every 2 hours and PRN for comfort: Please reposition patient from left to right sides. Additional information: Patient seen in [facility] for wound evaluation of sacrum. Wound/Pressure Injury - Patient Status Premedicated for Pain Prior to Dressing Change: No - Wound Sacrum Wound Staging: Stage IV Wound Type: Pressure Injury Is This a Chronic Wound: Yes Requested from Provider a Wound Care Consult: Yes (Dr Alfaro) Length (cm): 1.1 (cm) Width (cm): 1 (cm) Depth (cm): 0.4 (cm) Wound Bed Appearance: White Wound Bed Appearance: Wound is 100% fascia, moist, not actively draining and no odor noted. Wound margins are visualized with epibole circumferentially. Periwound is thickened with a washboard appearance. Drainage Amount: None Drainage Odor: No Odor Dressing Status: Changed Cleansing Solution: Saline Primary Dressing: Optifoam AG Tape Type: Paper Wound Dressing Change Date: 04/25/18 (dressing obtained was all that was available at the time until orders for hydrogel and optifoam gentle could be obtained from physician.)
[2018-04-26] MEDS: Sod Chloride 0.9% Inj 1,000 ML IV.CONT SCH (01:04)
[2018-04-26 06:03] LABS: Baso % (Auto) 0.7 % (0.0-2.0); Eos # (Auto) 0.1 th/mm3 (0.0-0.4); Eos % (Auto) 1.6 % (0.0-4.0); Hemoglobin 10.4 gm/dL (13.0-17.0); Lymph # (Auto) 0.5 th/mm3 (1.0-4.8); Lymph % (Auto) 9.1 % (9.0-44.0); Mean Corpuscular HGB Conc 33.5 % (32.0-36.0); Mean Corpuscular Hemoglobin 28.8 pg (27.0-34.0); Mean Corpuscular Volume 85.8 fL (80.0-100.0); Mean Platelet Volume 8.1 fL (7.0-11.0); Mono # (Auto) 0.4 th/mm3 (0.0-0.9); Mono % (Auto) 8.2 % (0.0-8.0); Neut # (Auto) 4.3 th/mm3 (1.8-7.7); Neut % (Auto) 80.4 % (16.0-70.0); Platelet Count 175 th/mm3 (150-450); Red Blood Count 3.61 mil/mm3 (4.50-5.90); Red Cell Distribution Width 16.8 % (11.6-17.2); White Blood Count 5.4 th/mm3 (4.0-11.0)
[2018-04-26 06:31] LABS: Anion Gap 7 meq/L (5-15); Blood Urea Nitrogen 7 mg/dL (7-18); Calcium 9.4 mg/dL (8.5-10.1); Carbon Dioxide 31.3 meq/L (21.0-32.0); Chloride 99 meq/L (98-107); Glomerular Filtration Rate Greater Than 89 mL/min (>89); Glucose,Random 122 mg/dL (74-106); Potassium 3.1 meq/L (3.5-5.1); Sodium 137 meq/L (136-145)
--- NOTE | 2018-04-26 08:31 | P.DS ---
Date of admission: 04/23/18 01:34 Primary care physician: Adriano Denton MD Brief History from admission: 82-year-old male [place] [facility] resident with history of dementia, recent history of left hip surgery, chronic Bean catheter, who presents with episode of syncope and altered mental status from [facility] and rehab. Patient was reported to have passed out in his wheelchair for 30 seconds without falling out of wheelchair. Patient noted subsequently to be confused. History obtained from discussion with the ER physician and chart review patient is currently pleasantly confused. Denies any pain. Does not know why he is here. Says he is at [facility]. DS: Diagnosis - Discharge Diagnosis (1) Acute UTI Status: Acute (2) Delirium Status: Acute (3) Syncope Status: Acute DS: Medications - Discharge Medications Prescriptions: ciprofloxacin HCl 500 mg PO Q12H #10 tab DS: Summary Hospital Course: Altered mental status, improved and back at his baseline mentation -History of dementia Likely secondary to significant UTI. -CT head with no acute findings. Does show chronic atrophy Treat UTI as below. UTI with Chronic Bean. with E coli Grossly positive urinalysis, white blood cell clumps. -Bean exchanged in the ER. Received IV abx ceftriaxone. Follow-up urine culture with E coli Hematuria from traumatic bean . Patient did pull bean 04/23. Urine is clearing up. Consider urology consult if need Has adequate urine UP , monitor Will consult urology if need Monitor H.H, so far stable Vision change. Patient noted with anisocoria. repeat CT head w/o contrast . Consult neurology for further evaluation. patient doesn't have a h/o stroke. neuro checks Cont gentle IVF Telemetry MRI of the brain no stroke Patient also to follow-up with ophthalmology as outpatient Hypertension. Chronic. Blood pressure acceptable. Continue home medications as necessary. Hypokalemia: Replace and continue to monitor. Dementia. Chronic with acute worsening. Continue home medications. Patient improved Chronic pressure wounds present on admission. Turn q2hrs . Consult wound care. To follow up with wound care Patient improved. DC home in stable condition to follow up as OP with PCP and consultants - Time Spent with Patient Total time spent providing and/or coordinating discharge services: Greater than 30 minutes Exam Vital signs: Vital Signs 04/25/18 11:14 04/25/18 16:00 04/25/18 18:30 Temperature 98.4 F 98.2 F Pulse Rate 67 65 Respiratory Rate 18 Blood Pressure 141/62 H 146/62 H Pulse Oximetry 96 96 96 04/25/18 19:49 04/25/18 20:00 04/26/18 00:00 Temperature 98.7 F 98.7 F Pulse Rate 68 76 72 Respiratory Rate 20 17 Blood Pressure 172/79 H 165/76 H Pulse Oximetry 96 94 L 04/26/18 07:19 04/26/18 08:20 Temperature 98.5 F Pulse Rate 62 Respiratory Rate 12 Blood Pressure 133/63 Pulse Oximetry 95 95 Intake & Output 04/25/18 04/26/18 04/26/18 18:59 06:59 18:59 Intake Total 700 / 700 580 / 580 Output Total 2800 / 2800 1999 Balance -2100 / -2100 -1420 / -1420 Weight 90.718 kg Intake: IV 100 / 100 Rocephin Inj 1,000 MG In NS Inj 100 / 100 100 ML @ 200 mls/hr IV.SIG Q24H [facility] Rx#:[id number] Oral 700 / 700 480 / 480 Output: Urine Amount (Catheter) 2800 / 2800 1999 Indwelling Urethral Catheter 2800 / 2800 1999 Other: Date of Last Bowel Movement 04/23/18 04/23/18 # Bowel Movements 1 Narrative: GENERAL: Patient lying in bed. Appears comfortable. Alert. Oriented x2 CARDIOVASCULAR: Regular rate and rhythm. HEENT: Anisocoria. RESPIRATORY: No accessory muscle use. Clear to auscultation. Breath sounds equal bilaterally. GASTROINTESTINAL: Abdomen soft, non-tender, nondistended. Hepatic and splenic margins not palpable. MUSCULOSKELETAL: Extremities without clubbing, cyanosis, or edema. No obvious deformities. Patient with subcentimeter sacral ulcer NEUROLOGICAL: Awake and alert. No obvious cranial nerve deficits. Motor grossly within normal limits. Five out of 5 muscle strength in the arms and legs. Normal speech. PSYCHIATRIC: Appropriate mood and affect; insight and judgment normal. Results Procedures completed during hospitalization: none Labs on day of discharge: Labs from last 24 hours 04/26/18 04/26/18 04:31 04:31 WBC 5.4 RBC 3.61 L Hgb 10.4 L Hct 31.0 L MCV 85.8 MCH 28.8 MCHC 33.5 RDW 16.8 Plt Count 175 MPV 8.1 Neut % (Auto) 80.4 H Lymph % (Auto) 9.1 [place] % (Auto) 8.2 H Eos % (Auto) 1.6 Baso % (Auto) 0.7 Neut # (Auto) 4.3 Lymph # (Auto) 0.5 L [place] # (Auto) 0.4 Eos # (Auto) 0.1 Baso # (Auto) 0.0 WBC Differential . Differential Comment Auto diff final Sodium 137 Potassium 3.1 L Chloride 99 Carbon Dioxide 31.3 Anion Gap 7 BUN 7 Creatinine 0.38 L Estimated GFR Greater than 89 Random Glucose 122 H Calcium 9.4 - Impressions ITS Impressions Chest X-Ray 04/22/18 22:48 CONCLUSION: No infiltrates seen. Limited quality exam. Head CT 04/24/18 00:00 CONCLUSION: 1. Cortical atrophy and microvascular ischemic demyelinative change. This is stable compared to previous of 04/22/2018. Head MRI 04/25/18 07:04 CONCLUSION: 1. Cerebral atrophy and chronic ischemic small vessel vasculopathy. 2. No acute infarction. Discharge Plan - Discharge Disposition Patient Disposition: 03 Discharge to SNF - Discharge Condition Condition: Stable - Discharge Order Discharge Orders: Discharge Order (Routine); Ordered 04/26/18 Ordered By: Alana Bliss - Discharge Details Anticipated Discharge Date: 04/26/18 - Physicians Team Primary Care Provider: Adriano Denton Attending Provider: Alana Bliss [facility] ; Elisa Sanchez MD
[2018-04-26] MEDS: amLODIPine 10 MG Tablet PO SCH (09:23)
[2018-04-26] MEDS: Metoprolol Tartrate 25 MG Tablet PO SCH (09:25)
[2018-04-26] MEDS: Magnesium Oxide 400 MG Tablet PO SCH (09:25)
== END 2018-04-26 11:16 ==
LOC: NEDA 22:05 → NEPC 22:05 → NEPFCDU 04-23 02:24
PROVIDERS: ADMIT Hospitalist; ATTEND Hospitalist

== ENCOUNTER 2018-05-01 16:39 | Observation (INO) ==
[2018-05-01] MEDS ORDERED: Sod Chloride 0.9% Inj 1,000 ML IV.SIG SCH ×2 (17:00)
--- NOTE | 2018-05-01 17:14 | XR ---
EXAM DATE: 05/01/2018 5:09 PM EST AGE/SEX: 82 years / Male INDICATIONS: Fever. CLINICAL DATA: This is the patient's initial encounter. Patient reports that signs and symptoms have been present for 1 day and indicates a pain score of Nonresponsive. MEDICAL/SURGICAL HISTORY: Non-responsive. Non-responsive. [place] [facility] [place]. . FINDINGS: Increased density is seen in both lung bases. Mid-upper lung thurman are clear. Heart and mediastinal structures are unremarkable. CONCLUSION: Mild basilar opacity which may represent developing airspace disease. Electronically signed by: Tacho Troy MD 05/01/2018 5:12 PM EST
[2018-05-01 17:30] LABS: Baso % (Auto) 0.1 % (0.0-2.0); Hematocrit 26.9 % (39.0-51.0); Hemoglobin 9.3 gm/dL (13.0-17.0); Lymph # (Auto) 0.3 th/mm3 (1.0-4.8); Lymph % (Auto) 6.4 % (9.0-44.0); Mean Corpuscular HGB Conc 34.6 % (32.0-36.0); Mean Corpuscular Hemoglobin 30.3 pg (27.0-34.0); Mean Corpuscular Volume 87.5 fL (80.0-100.0); Mean Platelet Volume 7.8 fL (7.0-11.0); Mono # (Auto) 0.3 th/mm3 (0.0-0.9); Neut # (Auto) 3.7 th/mm3 (1.8-7.7); Neut % (Auto) 87.5 % (16.0-70.0); Platelet Count 149 th/mm3 (150-450); Red Blood Count 3.08 mil/mm3 (4.50-5.90); Red Cell Distribution Width 17.4 % (11.6-17.2); White Blood Count 4.2 th/mm3 (4.0-11.0)
[2018-05-01] MEDS ORDERED: Piperacil/Tazo 4.5 GM Premix 4.5 GM/100 ML BAG IV.SIG STA (17:32)
[2018-05-01] MEDS ORDERED: Vancomycin Inj 1,000 MG in Sodium Chlor 0.9% Inj 250 ML IV.SIG STA (17:32)
[2018-05-01 17:35] LABS: Activated Partial Thrombo Time 30.7 sec (23.4-31.7); INR 1.1 Ratio; Prothrombin Time 11.6 sec (9.8-11.6)
--- NOTE | 2018-05-01 17:39 | CT ---
EXAM DATE: 05/01/2018 5:24 PM EST AGE/SEX: 82 years / Male INDICATIONS: Altered mental status. CLINICAL DATA: This is the patient's initial encounter. Patient reports that signs and symptoms have been present for 1 day and indicates a pain score of Nonresponsive. MEDICAL/SURGICAL HISTORY: Hypertension. Dementia. Anemia. Malignant neoplasm, prostate cancer. None. RADIATION DOSE: 56.35 CTDI (mGy) COMPARISON: [facility] – [place], [place] HEAD W/O CONTRAST, 04/24/2018. . TECHNIQUE: CT of the head without contrast. Using automated exposure control and adjustment of the mA and/or kV according to patient size, radiation dose was kept as low as reasonably achievable to ob tain optimal diagnostic quality images. DICOM format image data is available electronically for revi ew and comparison. FINDINGS: Cerebrum: Generalized volume loss with enlargement of the CSF spaces especially the lateral ventricl es is again noted. Significant hypodensity is seen throughout the cerebral white matter. There are no characteristic findings of acute infarct, hemorrhage or mass. There is no evidence of focal edema. Posterior Fossa: The cerebellum and brainstem are intact. The 4th ventricle is midline. The cerebe llopontine angle is unremarkable. Extracranial: The visualized portion of the orbits is intact. Skull: The calvaria is intact. No evidence of skull fracture. CONCLUSION: 1. 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 No evidence of acute infarct, hemorrhage, mass or edema. 3. No significant change compared to recent study on 04/24/2018. . Electronically signed by: Tacho Troy MD 05/01/2018 5:38 PM EST
[2018-05-01 17:41] LABS: Albumin 2.2 g/dL (3.4-5.0); Anion Gap 6 meq/L (5-15); Aspartate Aminotransferase 34 U/L (15-37); Blood Urea Nitrogen 18 mg/dL (7-18); Calcium 9.6 mg/dL (8.5-10.1); Carbon Dioxide 30.8 meq/L (21.0-32.0); Chloride 98 meq/L (98-107); Glomerular Filtration Rate Greater Than 89 mL/min (>89); Glucose,Random 184 mg/dL (74-106); Magnesium 2.1 mg/dL (1.5-2.5); Sodium 135 meq/L (136-145)
[2018-05-01 17:45] LABS: Alanine Aminotransferase 11 U/L (12-78); Alkaline Phosphatase 125 U/L (45-117); Total Protein 5.7 g/dL (6.4-8.2)
[2018-05-01 17:47] LABS: Creatine Kinase 43 U/L (39-308)
--- NOTE | 2018-05-01 17:49 | ED ---
HPI General Chief complaint: Weakness Stated complaint: Medical Time Seen by Provider: 05/01/18 16:42 Source: patient and EMS Mode of arrival: EMS Limitations: altered mental status History of Present Illness HPI Narrative: 82-year-old male the presents to the ED for evaluation of possible sepsis. Patient comes to me from an [facility]. Patient was recently admitted to the hospital for UTI and syncope. Patient is chronically demented and has a history of confusion but per EVAC report and detention report patient has been more lethargic which is unusual for him. He does have a Bean in place and is been draining dark urine. Patient was recently admitted and diagnosed with UTI and started antibiotics IV and it seems that he was discharged with Cipro outpatient. Patient apparently still taking the medications. Patient himself cannot give any history. History is limited because of this. Most of the history obtained from EVAC and detention report. Patient was found to be slightly hypotensive but otherwise pleasantly demented and altered. Related Data Home Medications Medication Instructions Recorded Confirmed amlodipine 10 mg PO DAILY 04/23/18 05/01/18 ascorbic acid (vitamin C) [Vitamin 250 mg PO BID 04/23/18 05/01/18 C] aspirin 81 mg PO DAILY 04/23/18 05/01/18 atorvastatin 10 mg PO DAILY 04/23/18 05/01/18 docusate sodium 100 mg PO DAILY 04/23/18 05/01/18 duloxetine 20 mg PO BID 04/23/18 05/01/18 lorazepam [Ativan] 0.5 mg PO HS 04/23/18 05/01/18 losartan-hydrochlorothiazide 1 tab PO DAILY 04/23/18 05/01/18 memantine-donepezil [Namzaric] 1 cap PO DAILY 04/23/18 05/01/18 metoprolol tartrate 12.5 mg PO BID 04/23/18 05/01/18 omega 2-fma-oov-fish oil [Fish Oil] 1,000 mg PO DAILY 04/23/18 05/01/18 potassium chloride 10 meq PO DAILY 04/23/18 05/01/18 zinc sulfate 220 mg PO DAILY 04/23/18 05/01/18 Previous Rx's Medication Instructions Recorded ciprofloxacin HCl 500 mg PO Q12H #10 tab 04/26/18 Allergies Allergy/AdvReac Type Severity Reaction Status Date / Time No Known Allergies Allergy Verified 04/22/18 22:48 Review of Systems ROS: all other systems reviewed are negative [facility] Medical History Medical History Contracture, left knee (Acute) ESBL (extended spectrum beta-lactamase) producing bacteria infection (Acute) Falls (Acute) Femur fracture, left (Acute) Osteoarthritis (Acute) Overactive bladder (Acute) UTI (urinary tract infection) (Acute) Anemia (Acute) Anxiety (Acute) BBB (bundle branch block) (Acute) Dementia (Acute) Depression (Acute) HTN (hypertension) (Acute) Hyperlipidemia (Acute) Hypokalemia (Acute) Left tibial fracture (Acute) Malignant neoplasm prostate (Acute) Muscle weakness (generalized) (Acute) Surgical History Surgical History Presence of left artificial hip joint (Acute) History of left hip replacement (Acute) Family History Family History Other Family circumstance Social History Social History Substance History: No History of Abuse Second Hand Smoke Exposure: No Smoking Status: Smoker, status unknown Tobacco Type: Cigarettes How Often Do You Have a Drink Containing Alcohol: 2 to 4 times a month Recent Travel in [facility] within the Last 8 Weeks: No Recent Out of Country Travel within the Last 8 Weeks: No Immunization History Tetanus Immunization: <5 Years Exam Narrative Exam Narrative: GENERAL: Well groomed somewhat lethargic SKIN: Focused skin assessment warm/dry. HEAD: Atraumatic. Normocephalic. EYES: Pupils equal and round 4 mms reactive to light and accommodation. No scleral icterus. No injection or drainage. ENT: No nasal bleeding or discharge. Mucous membranes pink and moist. Tongue is midline. No uvula deviation. NECK: Trachea midline. No JVD. CARDIOVASCULAR: Regular rate and rhythm. No murmur appreciated. RESPIRATORY: No accessory muscle use. Clear to auscultation. Breath sounds equal bilaterally. GASTROINTESTINAL: Abdomen soft, non-tender, nondistended. Hepatic and splenic margins not palpable. Patient has a bean in place. MUSCULOSKELETAL: No obvious deformities. No clubbing. No cyanosis. No edema. Full ROM of the upper and lower extremities bilaterally. 2+ pulses bilaterally. NEUROLOGICAL: Awake and smonloent but arousable. No obvious cranial nerve deficits. Motor grossly within normal limits. Normal speech. PSYCHIATRIC: altered mood and affect; insight and judgment cannot assess Course Initial Documented Vital Signs Respiratory Rate 14 05/01/18 16:53 Last Documented Vital Signs Temperature 98.9 F 05/01/18 17:12 Pulse Rate 54 L 05/01/18 18:17 Respiratory Rate 18 05/01/18 18:17 Blood Pressure 102/55 L 05/01/18 18:17 Pulse Oximetry 98 05/01/18 18:17 Medical Decision Making MDM Narrative Medical decision making narrative: 82 yo male here for evaluation of AMS and possible sepsis. Labs and imaging ordered. Dr Álvarez, my attending made aware of all findings including hypotension. Patient started on 2 L of fluids per my attending, Zosyn and Vanco started as well. Labs and imaging showed UTI, possible pneumonia and chronic anemia. Otherwise unremarkable. Patient still hypotensive and after 2 L of fluid. Conditions for admission for further evaluation and treatment. My attending Dr. Cedeño was made aware of findings and agrees with plan. Patient was admitted to Dr. Alfaro who agrees to admission to his service. Medical Screen Exam Complete: Yes Emergency Medical Condition: Yes Differential Diagnosis Differential Diagnosis: sepsis vs urosepsis vs UTI vs pneumonia vs hypotension Medical Records Medical records reviewed: Yes I reviewed the patient's medical records. Lab Data Lab results reviewed: Yes I reviewed the patient's lab results. Result diagrams: 05/01/18 17:00 05/01/18 17:00 Lab Results 05/01/18 05/01/18 05/01/18 Range/Units 17:00 17:00 17:00 WBC 4.2 (4.0-11.0) th/mm3 RBC 3.08 L (4.50-5.90) mil/mm3 Hgb 9.3 L (13.0-17.0) gm/dL Hct 26.9 L (39.0-51.0) % MCV 87.5 (80.0-100.0) fL MCH 30.3 (27.0-34.0) pg MCHC 34.6 (32.0-36.0) % RDW 17.4 H (11.6-17.2) % Plt Count 149 L (150-450) th/mm3 MPV 7.8 (7.0-11.0) fL Neut % (Auto) 87.5 H (16.0-70.0) % Lymph % (Auto) 6.4 L (9.0-44.0) % [place] % (Auto) 6.0 (0.0-8.0) % Eos % (Auto) 0.0 (0.0-4.0) % Baso % (Auto) 0.1 (0.0-2.0) % Neut # (Auto) 3.7 (1.8-7.7) th/mm3 Lymph # (Auto) 0.3 L (1.0-4.8) th/mm3 [place] # (Auto) 0.3 (0.0-0.9) th/mm3 Eos # (Auto) 0.0 (0.0-0.4) th/mm3 Baso # (Auto) 0.0 (0.0-0.2) th/mm3 WBC Differential . Differential Comment Auto diff final PT 11.6 (9.8-11.6) sec INR 1.1 Ratio APTT 30.7 (23.4-31.7) sec Sodium (136-145) meq/L Potassium (3.5-5.1) meq/L Chloride (98-107) meq/L Carbon Dioxide (21.0-32.0) meq/L Anion Gap (5-15) meq/L BUN (7-18) mg/dL Creatinine (0.60-1.30) mg/dL Estimated GFR (>89) mL/min Random Glucose (74-106) mg/dL Lactic Acid (0.4-2.0) mmol/L Calcium (8.5-10.1) mg/dL Magnesium (1.5-2.5) mg/dL Total Bilirubin (0.2-1.0) mg/dL AST (15-37) U/L ALT (12-78) U/L Alkaline Phosphatase (45-117) U/L Total Creatine Kinase 43 (39-308) U/L Troponin I Less than 0.02 L (0.02-0.05) ng/mL Total Protein (6.4-8.2) g/dL Albumin (3.4-5.0) g/dL Urine Color (Yellw/Straw) Urine Clarity (Clear) Urine pH (5.0-8.5) Ur Specific Thatcher (1.002-1.035) Urine Protein (Neg-Trace) mg/dL Urine Glucose (UA) (Negative) mg/dL Urine Ketones (Negative) mg/dL Urine Occult Blood (Negative) Urine Nitrate (Negative) Urine Bilirubin (Negative) Urine Urobilinogen (Less than 2) mg/dL Ur Leukocyte Esterase (Negative) Urine RBC (0-3) /hpf Urine WBC (0-5) /hpf Ur Squamous Epith Cells (0-5) /hpf Urine Bacteria (None) /hpf Hyaline Casts (0-3) /lpf Urine Mucus (Occasional) /lpf Micro UA Comment Ur Microscopic Review Urine Culture Comments 05/01/18 05/01/18 05/01/18 Range/Units 17:00 17:00 18:00 WBC (4.0-11.0) th/mm3 RBC (4.50-5.90) mil/mm3 Hgb (13.0-17.0) gm/dL Hct (39.0-51.0) % MCV (80.0-100.0) fL MCH (27.0-34.0) pg MCHC (32.0-36.0) % RDW (11.6-17.2) % Plt Count (150-450) th/mm3 MPV (7.0-11.0) fL Neut % (Auto) (16.0-70.0) % Lymph % (Auto) (9.0-44.0) % [place] % (Auto) (0.0-8.0) % Eos % (Auto) (0.0-4.0) % Baso % (Auto) (0.0-2.0) % Neut # (Auto) (1.8-7.7) th/mm3 Lymph # (Auto) (1.0-4.8) th/mm3 [place] # (Auto) (0.0-0.9) th/mm3 Eos # (Auto) (0.0-0.4) th/mm3 Baso # (Auto) (0.0-0.2) th/mm3 WBC Differential Differential Comment PT (9.8-11.6) sec INR Ratio APTT (23.4-31.7) sec Sodium 135 L (136-145) meq/L Potassium 4.0 (3.5-5.1) meq/L Chloride 98 (98-107) meq/L Carbon Dioxide 30.8 (21.0-32.0) meq/L Anion Gap 6 (5-15) meq/L BUN 18 (7-18) mg/dL Creatinine 0.72 (0.60-1.30) mg/dL Estimated GFR Greater than 89 (>89) mL/min Random Glucose 184 H (74-106) mg/dL Lactic Acid 1.8 (0.4-2.0) mmol/L Calcium 9.6 (8.5-10.1) mg/dL Magnesium 2.1 (1.5-2.5) mg/dL Total Bilirubin 0.8 (0.2-1.0) mg/dL AST 34 (15-37) U/L ALT 11 L (12-78) U/L Alkaline Phosphatase 125 H (45-117) U/L Total Creatine Kinase (39-308) U/L Troponin I (0.02-0.05) ng/mL Total Protein 5.7 L (6.4-8.2) g/dL Albumin 2.2 L (3.4-5.0) g/dL Urine Color Ramonita (Yellw/Straw) Urine Clarity Hazy H (Clear) Urine pH 5.0 (5.0-8.5) Ur Specific Thatcher 1.024 (1.002-1.035) Urine Protein 100 H (Neg-Trace) mg/dL Urine Glucose (UA) Negative (Negative) mg/dL Urine Ketones Negative (Negative) mg/dL Urine Occult Blood Large H (Negative) Urine Nitrate Negative (Negative) Urine Bilirubin Negative (Negative) Urine Urobilinogen 2.0 H (Less than 2) mg/dL Ur Leukocyte Esterase Trace H (Negative) Urine RBC 40 H (0-3) /hpf Urine WBC 9 H (0-5) /hpf Ur Squamous Epith Cells 2 (0-5) /hpf Urine Bacteria Few H (None) /hpf Hyaline Casts 30 (0-3) /lpf Urine Mucus Many H (Occasional) /lpf Micro UA Comment Cath-culture ind Ur Microscopic Review Not Reportable Urine Culture Comments Cath-cult indicated Imaging Data Attestation: I personally reviewed and interpreted this imaging study as follows : Radiologist's impression: Chest X-Ray 11/05/18 16:53 CONCLUSION: Mild basilar opacity which may represent developing airspace disease. Head CT 05/01/18 16:54 CONCLUSION: 1. 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 No evidence of acute infarct, hemorrhage, mass or edema. 3. No significant change compared to recent study on 04/24/2018. . ECG Data Attestation: I personally reviewed and interpreted this ECG as follows: Interpretation: EKG shows sinus bradycardia but no sign of acute ischemia and arrhythmia. RBBB noted. Read by me and attending. Discharge Plan Discharge Disposition Patient Disposition: 30 Still Patient Discharge Details Diagnosis: Altered mental status, Acute UTI, Pneumonia Physicians Team ED Provider: Phil Álvarez ED Midlevel Provider: Jean Claude Kellogg Primary Care Provider: Adriano Denton Rxs /Orders / Referrals /Forms Prescriptions: No Action atorvastatin 10 mg Tablet 10 mg PO DAILY RF: 0 lorazepam [Ativan] 0.5 mg Tablet 0.5 mg PO HS RF: 0 amlodipine 10 mg Tablet 10 mg PO DAILY RF: 0 aspirin 81 mg Tablet,Chewable 81 mg PO DAILY RF: 0 losartan-hydrochlorothiazide 50-12.5 mg Tablet 1 tab PO DAILY RF: 0 duloxetine 20 mg Capsule,Delayed Release(Dr/Ec) 20 mg PO BID RF: 0 omega 6-tsj-xiq-fish oil [Fish Oil] 1,000 mg (120 mg-180 mg) Capsule 1,000 mg PO DAILY RF: 0 memantine-donepezil [Namzaric] 28-10 mg Capsule,Sprinkle,Er 24hr 1 cap PO DAILY RF: 0 potassium chloride 10 mEq Tablet Extended Release 10 meq PO DAILY RF: 0 zinc sulfate 220 mg Tablet 220 mg PO DAILY RF: 0 ascorbic acid (vitamin C) [Vitamin C] 500 mg Tablet 250 mg PO BID RF: 0 docusate sodium 100 mg Tablet 100 mg PO DAILY RF: 0 metoprolol tartrate 25 mg Tablet 12.5 mg PO BID RF: 0 ciprofloxacin HCl 500 mg Tablet 500 mg PO Q12H Qty: 10 RF: 0 Discharge Interventions Interventions: Vital Signs Last Done: 05/01/18 18:17 Status ED Status: Admitted Observation Patient
[2018-05-01 18:43] LABS: Bacteria,Urine Few /hpf; Bilirubin,Urine Negative (Negative); Color,Urine Amber (Yellw/Straw); Glucose,Urine (UA) Negative (Negative); Hyaline Casts,Urine 30 /lpf (0-3); Leukocyte Esterase,Urine Trace (Negative); Mucus,Urine Many /lpf (Occasional); Nitrite,Urine Negative (Negative); Specific Gravity,Urine 1.024 (1.002-1.035); Squamous Epithelial Cell,Urine 2 /hpf (0-5)
[2018-05-01 18:44] LABS: Clarity,Urine Hazy (Clear)
[2018-05-01] MEDS ORDERED: Bisacodyl 10 MG Supp RECTAL PRN (19:20)
[2018-05-01] MEDS ORDERED: Vancomycin Consult Pharmacy OTHER PRN (19:23)
[2018-05-01] MEDS: Piperacil/Tazo 3.375 GM Premix 50 ML IV.SIG SCH (23:30)
[2018-05-02] MEDS: Vancomycin Inj 1,250 MG in Sodium Chlor 0.9% Inj 250 ML IV.SIG SCH ×2 (04:17→16:39)
--- NOTE | 2018-05-02 04:39 | P.HPIM ---
History of Present Illness Primary Care Physician: Adriano Denton MD History of Present Illness: 82-year-old male with a history of dementia, recent left hip surgery, chronic Yanez catheter secondary to retention who presented with altered mental status from facility. Patient himself denies any pain, however is somnolent, history obtained from ED physician. Patient sent in from [facility] secondary to confusion, lethargy, dark urine in Yanez bag. Recent admission with UTI which improved on IV antibiotics, completing course of treatment with Cipro for multidrug- resistant E. coli. Review of Systems unobtainable due to mental condition PMFSH - History History Provided By: Medical Record - Medical History Medical History: Medical History (Last Reviewed 05/02/18 @ 04:27 by Pj Alfaro MD) Contracture, left knee ESBL (extended spectrum beta-lactamase) producing bacteria infection Falls Femur fracture, left Osteoarthritis Overactive bladder UTI (urinary tract infection) Anemia Anxiety BBB (bundle branch block) Dementia Depression HTN (hypertension) Hyperlipidemia Hypokalemia Left tibial fracture Malignant neoplasm prostate Muscle weakness (generalized) - Surgical History Surgical History: Surgical History (Last Reviewed 05/02/18 @ 04:27 by Pj Alfaro MD) Presence of left artificial hip joint History of left hip replacement - Family History Family History: Family History (Last Reviewed 05/01/18 @ 17:46 by CAL Colunga) Other Family circumstance - Social History I have reviewed the patient's Social History: Yes - Tobacco History Second Hand Smoke Exposure: No Tobacco Use In Past 30 Days: No Smoking Status: Never smoker Tobacco Type: Cigarettes - Alcohol History How Often Do You Have a Drink Containing Alcohol: Never - Substance Use History Substance History: No History of Abuse - Travel History Recent Travel in the [place] Within the Last 8 Weeks: No Recent Travel Out of the Country Within the Last 8 Weeks: No - Immunization History Tetanus Immunization: <5 Years Medications and Allergies Active Medications: Active Medications Al Hydroxide/Mg Hydroxide (Milk Of Magnesia Liq) 30 ml PO Q12H PRN PRN Reason: Mild Constipation Bisacodyl (Dulcolax Supp) 10 mg RECTAL DAILY PRN PRN Reason: SEVERE CONSITIPATION Piperacillin/Tazobactam/Dextrose (Zosyn 3.375 Gm Premix) 50 mls @ 100 mls/hr IV.SIG Q6H REHAN Last Infusion: 05/02/18 00:09 Dose: Infused Vancomycin HCl 1,250 mg/ (Sodium Chloride) 262.5 mls @ 250 mls/hr IV.SIG Q12H REHAN Last Admin: 05/02/18 04:17 Dose: 250 mls/hr Lactulose (Lactulose Liq) 30 ml PO DAILY PRN PRN Reason: SEVERE CONSITIPATION Miscellaneous Information ([facility] Ordered Lab Info) 0 each OTHER ONCE ONE Stop: 05/03/18 14:46 Pharmacy Profile Note (Vancomycin Consult Pharmacy) 1 each OTHER UNSCH PRN PRN Reason: Pharmacy to dose Sennosides (Senokot) 17.2 mg PO Q12H PRN PRN Reason: Moderate Constipation Allergies Allergy/AdvReac Type Severity Reaction Status Date / Time No Known Allergies Allergy Verified 04/22/18 22:48 Home Medications Medication Instructions Recorded Confirmed Type amlodipine 10 mg PO DAILY 04/23/18 05/02/18 History ascorbic acid (vitamin C) [Vitamin 500 mg PO BID 04/23/18 05/02/18 History C] aspirin 81 mg PO DAILY 04/23/18 05/02/18 History atorvastatin 10 mg PO DAILY 04/23/18 05/02/18 History docusate sodium 100 mg PO DAILY 04/23/18 05/02/18 History duloxetine 20 mg PO BID 04/23/18 05/02/18 History lorazepam [Ativan] 0.5 mg PO HS 04/23/18 05/02/18 History losartan-hydrochlorothiazide 1 tab PO DAILY 04/23/18 05/02/18 History memantine-donepezil [Namzaric] 1 cap PO HS 04/23/18 05/02/18 History metoprolol tartrate 12.5 mg PO BID 04/23/18 05/02/18 History omega 1-seq-ojq-fish oil [Fish Oil] 1,000 mg PO DAILY 04/23/18 05/02/18 History potassium chloride 10 meq PO DAILY 04/23/18 05/02/18 History zinc sulfate 220 mg PO DAILY 04/23/18 05/02/18 History Exam Vital signs: Vital Signs 05/01/18 16:53 05/01/18 17:12 05/01/18 17:17 Temperature 98.9 F Pulse Rate 56 L 52 L Respiratory Rate 14 14 Blood Pressure 85/54 L 95/54 L Pulse Oximetry 98 99 05/01/18 18:17 05/01/18 20:51 05/01/18 23:55 Temperature 98.4 F 99.3 F Pulse Rate 54 L 55 L 57 L Respiratory Rate 18 16 19 Blood Pressure 102/55 L 103/54 L 116/55 L Pulse Oximetry 98 95 97 Intake & Output 05/01/18 05/01/18 05/02/18 06:59 18:59 06:59 Intake Total 2099 300 / 300 Balance 2099 300 / 300 Weight 106.594 kg 89.6 kg Intake: IV 2099 300 / 300 Zosyn 3.375 GM Premix 50 ML @ 50 / 50 100 mls/hr IV.SIG Q6H REHAN Rx#: [id number] Zosyn 4.5 GM Premix 4.5 gm In 100 / 100 100 ml @ 200 mls/hr IV.SIG STAT STA Rx#:[id number] NS Inj 1,000 ML @ 1000 mls/hr 1999 / 1999 IV.SIG BOLUS REHAN Rx#:[id number] Vancomycin Inj 1,000 MG In NS 250 / 250 Inj 250 ML @ 250 mls/hr IV.SIG STAT STA Rx#:[id number] Other: Date of Last Bowel Movement 05/01/18 Weight On Admission 89.6 kg Narrative: GENERAL: Somnolent, patient wakes up for exam. Denies any pain. Comfortable. Disoriented. SKIN: Warm and dry. HEAD: Atraumatic. Normocephalic. EYES: Pupils equal and round. No scleral icterus. No injection or drainage. ENT: No nasal bleeding or discharge. Mucous membranes pink and moist. NECK: Trachea midline. No JVD. CARDIOVASCULAR: Regular rate and rhythm. RESPIRATORY: No accessory muscle use. Clear to auscultation. Breath sounds equal bilaterally. GASTROINTESTINAL: Abdomen soft, non-tender, nondistended. Hepatic and splenic margins not palpable. MUSCULOSKELETAL: Extremities without clubbing, cyanosis, or edema. No obvious deformities. NEUROLOGICAL: Awake and alert. No obvious cranial nerve deficits. Motor grossly within normal limits. Five out of 5 muscle strength in the arms and legs. Normal speech. PSYCHIATRIC: Appropriate mood and affect; insight and judgment normal. Results - Labs CBC & Chem 7: 05/01/18 17:00 05/01/18 17:00 Labs: Short CBC 05/01/18 Range/Units 17:00 WBC 4.2 (4.0-11.0) th/mm3 Hgb 9.3 L (13.0-17.0) gm/dL Hct 26.9 L (39.0-51.0) % Plt Count 149 L (150-450) th/mm3 BMP 05/01/18 17:00 Sodium 135 L Potassium 4.0 Chloride 98 Carbon Dioxide 30.8 BUN 18 Creatinine 0.72 Calcium 9.6 Cardiac Enzymes 05/01/18 Range/Units 17:00 Total Creatine Kinase 43 (39-308) U/L Troponin I Less than 0.02 L (0.02-0.05) ng/mL Liver Function 05/01/18 Range/Units 17:00 Total Bilirubin 0.8 (0.2-1.0) mg/dL AST 34 (15-37) U/L ALT 11 L (12-78) U/L Alkaline Phosphatase 125 H (45-117) U/L Albumin 2.2 L (3.4-5.0) g/dL Urine 05/01/18 Range/Units 18:00 Urine Color Ramonita (Yellw/Straw) Urine Clarity Hazy H (Clear) Urine pH 5.0 (5.0-8.5) Ur Specific Edwards 1.024 (1.002-1.035) Urine Protein 100 H (Neg-Trace) mg/dL Urine Glucose (UA) Negative (Negative) mg/dL - Imaging Impressions Chest X-Ray 05/01/18 16:53 CONCLUSION: Mild basilar opacity which may represent developing airspace disease. Head CT 05/01/18 16:54 CONCLUSION: 1. 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 No evidence of acute infarct, hemorrhage, mass or edema. 3. No significant change compared to recent study on 04/24/2018. . Caprini VTE Risk Assessment Caprini VTE Risk Assessment: Moderate/High Risk (score >= 2) Caprini Risk Assessment Model: Point Value = 1 Point Value = 2 Point Value = 3 Point Value = 5 Age 41-60 Minor surgery BMI > 25 kg/m2 Swollen legs Varicose veins or History of unexplained or recurrent spontaneous Oral contraceptives or hormone replacement Sepsis (< 1 month) Serious lung disease, including pneumonia (< 1 month) Abnormal pulmonary function Acute myocardial infarction Congestive heart failure (< 1 month) History of inflammatory bowel disease Medical patient at bed rest Age 61-74 Arthroscopic surgery Major open surgery (> 45 min) Laparoscopic surgery (> 45 min) Malignancy Confined to bed (> 72 hours) Immobilizing plaster cast Central venous access Age >= 75 History of VTE Family history of VTE Factor V Leiden Prothrombin [id number] Lupus anticoagulant Anticardiolipin antibodies Elevated serum homocysteine Heparin-induced thrombocytopenia Other congenital or acquired thrombophilia Stroke (< 1 month) Elective arthroplasty Hip, pelvis, or leg fracture Acute spinal cord injury (< 1 month) Prophylaxis Regimen: Total Risk Factor Score Risk Level Prophylaxis Regimen 0-1 Low Early ambulation 2 Moderate Order ONE of the following: *Sequential Compression Device (SCD) *Heparin 5000 units SQ BID 3-4 Higher Order ONE of the following medications: *Heparin 5000 units SQ TID *Enoxaparin/Lovenox 40 mg SQ daily (WT < 150 kg, CrCl > 30 mL/min) *Enoxaparin/Lovenox 30 mg SQ daily (WT < 150 kg, CrCl > 10-29 mL/min) *Enoxaparin/Lovenox 30 mg SQ BID (WT < 150 kg, CrCl > 30 mL/min) AND/OR *Sequential Compression Device (SCD) 5 or more Highest Order ONE of the following medications: *Heparin 5000 units SQ TID (Preferred with Epidurals) *Enoxaparin/Lovenox 40 mg SQ daily (WT < 150 kg, CrCl > 30 mL/min) *Enoxaparin/Lovenox 30 mg SQ daily (WT < 150 kg, CrCl > 10-29 mL/min) *Enoxaparin/Lovenox 30 mg SQ BID (WT < 150 kg, CrCl > 30 mL/min) AND *Sequential Compression Device (SCD) Assessment and Plan - Plan //Altered mental status //Chronic history of dementia -CT head with no acute findings. Likely secondary to UTI. Follow-up urine culture and treat as below //UTI //Recent history of MDR O E. coli UTI. Chronic Yanez catheter Positive urinalysis. Follow-up urine cultures and sensitivities start on IV antibiotics. //Hypertension. Blood pressure borderline low. Will hold off on losartan hydrochlorothiazide. Continue to monitor. Discussed Condition With: Patient, nurse, ED physician. H&P: Quality - VTE Deep Vein Thrombosis/Pulmonary Embolism Present on Admission: No
--- NOTE | 2018-05-02 05:20 | ECG ---
Date Performed: 05/01/2018 Time Performed: 18:05:05 PTAGE: 82 years EKG: Baseline artifact present SINUS BRADYCARDIA RIGHT BUNDLE BRANCH BLOCK ABNORMAL ECG Compared to prior electrocardiogram, rate has decreased . PREVIOUS TRACING : 04/22/2018 22.21 DOCTOR: Edward Mayen Interpretating Date/Time 05/02/2018 05:20:10
[2018-05-02] MEDS: Piperacil/Tazo 3.375 GM Premix 50 ML IV.SIG SCH ×4 (06:08→23:29)
[2018-05-02 07:21] LABS: Baso % (Auto) 0.2 % (0.0-2.0); Eos % (Auto) 0.7 % (0.0-4.0); Hematocrit 25.2 % (39.0-51.0); Hemoglobin 8.7 gm/dL (13.0-17.0); Lymph # (Auto) 0.5 th/mm3 (1.0-4.8); Lymph % (Auto) 10.3 % (9.0-44.0); Mean Corpuscular HGB Conc 34.4 % (32.0-36.0); Mean Corpuscular Hemoglobin 29.2 pg (27.0-34.0); Mean Corpuscular Volume 84.8 fL (80.0-100.0); Mean Platelet Volume 7.8 fL (7.0-11.0); Mono # (Auto) 0.4 th/mm3 (0.0-0.9); Mono % (Auto) 8.9 % (0.0-8.0); Neut # (Auto) 3.6 th/mm3 (1.8-7.7); Neut % (Auto) 79.9 % (16.0-70.0); Platelet Count 136 th/mm3 (150-450); Red Blood Count 2.97 mil/mm3 (4.50-5.90); Red Cell Distribution Width 16.9 % (11.6-17.2); White Blood Count 4.5 th/mm3 (4.0-11.0)
[2018-05-02 08:02] LABS: Alanine Aminotransferase 10 U/L (12-78); Albumin 2.1 g/dL (3.4-5.0); Anion Gap 8 meq/L (5-15); Aspartate Aminotransferase 34 U/L (15-37); Blood Urea Nitrogen 19 mg/dL (7-18); Calcium 9.4 mg/dL (8.5-10.1); Chloride 102 meq/L (98-107); Glomerular Filtration Rate Greater Than 89 mL/min (>89); Glucose,Random 126 mg/dL (74-106); Potassium 3.1 meq/L (3.5-5.1); Sodium 139 meq/L (136-145)
[2018-05-02 08:04] LABS: Alkaline Phosphatase 111 U/L (45-117); Total Protein 5.2 g/dL (6.4-8.2)
[2018-05-02] MEDS ORDERED: Metoprolol Tartrate 25 MG Tablet PO SCH (09:00)
[2018-05-02] MEDS: KCL 20 mEq/NACL 0.45% Inj 1,000 ML IV.CONT SCH ×2 (13:11→23:29)
[2018-05-02] MEDS ORDERED: NAMZARIC PO SCH (21:00)
[2018-05-03] MEDS: Vancomycin Inj 1,250 MG in Sodium Chlor 0.9% Inj 250 ML IV.SIG SCH (03:15)
[2018-05-03 04:08] VITALS: O2SAT 95
[2018-05-03] MEDS: Piperacil/Tazo 3.375 GM Premix 50 ML IV.SIG SCH ×2 (05:11→11:38)
[2018-05-03 07:06] LABS: Baso % (Auto) 0.2 % (0.0-2.0); Eos % (Auto) 0.5 % (0.0-4.0); Hematocrit 25.1 % (39.0-51.0); Hemoglobin 8.7 gm/dL (13.0-17.0); Lymph # (Auto) 0.3 th/mm3 (1.0-4.8); Lymph % (Auto) 6.5 % (9.0-44.0); Mean Corpuscular HGB Conc 34.8 % (32.0-36.0); Mean Corpuscular Hemoglobin 29.6 pg (27.0-34.0); Mean Corpuscular Volume 85.1 fL (80.0-100.0); Mean Platelet Volume 7.8 fL (7.0-11.0); Mono # (Auto) 0.3 th/mm3 (0.0-0.9); Mono % (Auto) 6.3 % (0.0-8.0); Neut # (Auto) 4.4 th/mm3 (1.8-7.7); Neut % (Auto) 86.5 % (16.0-70.0); Platelet Count 126 th/mm3 (150-450); Red Blood Count 2.94 mil/mm3 (4.50-5.90); Red Cell Distribution Width 17.1 % (11.6-17.2); White Blood Count 5.1 th/mm3 (4.0-11.0)
[2018-05-03 07:59] VITALS: RESP 18
[2018-05-03 10:45] LABS: Anion Gap 8 meq/L (5-15); Blood Urea Nitrogen 21 mg/dL (7-18); Carbon Dioxide 27.5 meq/L (21.0-32.0); Chloride 103 meq/L (98-107); Glomerular Filtration Rate Greater Than 89 mL/min (>89); Glucose,Random 138 mg/dL (74-106); Sodium 138 meq/L (136-145)
[2018-05-03 11:31] VITALS: BP 111/50; PULSE 61; TEMP 98.4
[2018-05-03] MEDS: KCL 20 mEq/NACL 0.45% Inj 1,000 ML IV.CONT SCH (11:38)
--- NOTE | 2018-05-03 11:40 | P.PN ---
Subjective Interval history: Patient is seen lying in bed. is at bedside. Patient says he is feeling good and wants to get out of here. Nursing reports no adverse events overnight. Physical Exam Vital signs: Vital Signs 05/02/18 12:12 05/02/18 16:41 05/02/18 20:00 Temperature 98.4 F 98.4 F 97.5 F L Pulse Rate 41 L 46 L 49 L Respiratory Rate 18 20 18 Blood Pressure 86/48 L 96/55 L 90/47 L Pulse Oximetry 98 97 99 05/03/18 00:00 05/03/18 04:00 05/03/18 07:50 Temperature 97.4 F L 97.9 F 98.2 F Pulse Rate 55 L 50 L 55 L Respiratory Rate 18 17 18 Blood Pressure 143/92 H 88/52 L 110/52 L Pulse Oximetry 97 95 95 05/03/18 11:28 Temperature 98.4 F Pulse Rate 61 Respiratory Rate 18 Blood Pressure 111/50 L Pulse Oximetry 95 Intake & Output 05/02/18 05/03/18 05/03/18 18:59 06:59 18:59 Intake Total 1112.5 / 1112.5 1712.5 / 1712.5 Output Total 750 / 750 800 / 800 Balance 362.5 / 362.5 912.5 / 912.5 Weight 90.2 kg Intake: IV 312.5 / 312.5 1412.5 / 1412.5 Potassium Chlor 20 mEq/NACL 0. 1000 / 1000 45% Inj 1,000 ML @ 100 mls/hr IV.CONT .Q10H [facility] Rx#:[id number] Zosyn 3.375 GM Premix 50 ML @ 50 / 50 150 / 150 100 mls/hr IV.SIG Q6H [facility] Rx#: [id number] Vancomycin Inj 1,250 MG In NS 262.5 / 262.5 262.5 / 262.5 Inj 250 ML @ 250 mls/hr IV.SIG Q12H [facility] Rx#:[id number] Oral 800 / 800 300 / 300 Output: Urine 750 / 750 Urine Amount (Catheter) 800 / 800 Indwelling Urethral Catheter 800 / 800 Narrative: GENERAL: Somnolent, patient wakes up for exam. Denies any pain. Comfortable. Disoriented. SKIN: Warm and dry. HEAD: Atraumatic. Normocephalic. CARDIOVASCULAR: Regular rate and rhythm. RESPIRATORY: No accessory muscle use. Clear to auscultation. Breath sounds equal bilaterally. GASTROINTESTINAL: Abdomen soft, non-tender, nondistended. MUSCULOSKELETAL: Extremities without clubbing, cyanosis, or edema. No obvious deformities. NEUROLOGICAL: No obvious cranial nerve deficits. Motor grossly within normal limits. Five out of 5 muscle strength in the arms and legs. Normal speech. PSYCHIATRIC: Poor historian - Urinary Catheter Management Indwelling Urethral Catheter Cath placed during this visit: yes Reason for continuing: Chronic Urinary Retention Insertion date: 05/01/18 Insertion time: 20:10 Results - Labs CBC & Chem 7: 05/03/18 06:14 05/03/18 10:00 Laboratory Results - last 24 hr 05/01/18 05/03/18 05/03/18 18:00 06:14 10:00 WBC 5.1 RBC 2.94 L Hgb 8.7 L Hct 25.1 L MCV 85.1 MCH 29.6 MCHC 34.8 RDW 17.1 Plt Count 126 L MPV 7.8 Neut % (Auto) 86.5 H Lymph % (Auto) 6.5 L [place] % (Auto) 6.3 Eos % (Auto) 0.5 Baso % (Auto) 0.2 Neut # (Auto) 4.4 Lymph # (Auto) 0.3 L [place] # (Auto) 0.3 Eos # (Auto) 0.0 Baso # (Auto) 0.0 WBC Differential . Differential Comment Auto diff final Sodium 138 Potassium 4.0 D Chloride 103 Carbon Dioxide 27.5 Anion Gap 8 BUN 21 H Creatinine 0.68 Estimated GFR Greater than 89 Random Glucose 138 H Calcium 9.0 Magnesium 2.0 Urine Color Ramonita Urine Clarity Hazy H Urine pH 5.0 Ur Specific [place] 1.024 Urine Protein 100 H Urine Glucose (UA) Negative Urine Ketones Negative Urine Occult Blood Large H Urine Nitrate Negative Urine Bilirubin Negative Urine Urobilinogen 2.0 H Ur Leukocyte Esterase Trace H Urine RBC 40 H Urine WBC 9 H Ur Squamous Epith Cells 2 Urine Bacteria Few H Hyaline Casts 30 Urine Mucus Many H Micro UA Comment Cath-culture ind Urine Culture Comments Cath-cult indicated Microbiology 05/01/18 16:55 Blood - Peripheral Aerobic Blood Culture - Preliminary No growth in 2 days 05/01/18 16:55 Blood - Peripheral Anaerobic Blood Culture - Preliminary No growth in 2 days 05/01/18 17:00 Blood - Peripheral Aerobic Blood Culture - Preliminary No growth in 2 days 05/01/18 17:00 Blood - Peripheral Anaerobic Blood Culture - Preliminary No growth in 2 days 05/01/18 18:00 Catheterized Urine Urine Culture - Final Enterococcus faecalis Assessment and Plan - Assessment (1) Acute UTI Code(s): N39.0 - Urinary tract infection, site not specified Status: Acute (2) Delirium Code(s): R41.0 - Disorientation, unspecified Status: Resolved - Plan //Altered mental status //Chronic history of dementia -CT head with no acute findings. Likely secondary to UTI. Improved with treatment. //UTI //Recent history of MDR O E. coli UTI. Chronic Yanez catheter Positive urinalysis. Culture sensitive to ampicillin; will send home on same. //Hypertension. Blood pressure borderline low. Will hold off on losartan hydrochlorothiazide. Continue to monitor. Discussed Condition With: Patient, nurse, and case management.
--- NOTE | 2018-05-03 11:50 | P.DS ---
Date of admission: 05/01/18 19:19 Primary care physician: Adriano Denton MD Attending physician on discharge: Kane Orozco Anticipated date of discharge: 05/03/18 Brief History from admission: 82-year-old male with a history of dementia, recent left hip surgery, chronic Yanez catheter secondary to retention who presented with altered mental status from facility. Patient himself denies any pain, however is somnolent, history obtained from ED physician. Patient sent in from [facility] secondary to confusion, lethargy, dark urine in Yanez bag. Recent admission with UTI which improved on IV antibiotics, completing course of treatment with Cipro for multidrug- resistant E. coli. DS: Diagnosis - Discharge Diagnosis (1) Acute UTI Status: Acute (2) Delirium Status: Resolved DS: Medications - Discharge Medications Prescriptions: ampicillin 500 mg PO Q8HR #15 cap DS: Summary Hospital Course: 82-year-old male admitted for altered mental status. Has chronic indwelling Yaenz catheter. Known history of dementia. CT of head with no acute findings. Delirium likely secondary to UTI. Improved with IV antibiotics. Sensitivity completed; will send back to SNF on ampicillin. - Time Spent with Patient Total time spent providing and/or coordinating discharge services: Less than 30 minutes - Quality: VTE Deep Vein Thrombosis/Pulmonary Embolism Present on Admission: No Exam Vital signs: Vital Signs 05/02/18 12:12 05/02/18 16:41 05/02/18 20:00 Temperature 98.4 F 98.4 F 97.5 F L Pulse Rate 41 L 46 L 49 L Respiratory Rate 18 20 18 Blood Pressure 86/48 L 96/55 L 90/47 L Pulse Oximetry 98 97 99 05/03/18 00:00 05/03/18 04:00 05/03/18 07:50 Temperature 97.4 F L 97.9 F 98.2 F Pulse Rate 55 L 50 L 55 L Respiratory Rate 18 17 18 Blood Pressure 143/92 H 88/52 L 110/52 L Pulse Oximetry 97 95 95 05/03/18 11:28 Temperature 98.4 F Pulse Rate 61 Respiratory Rate 18 Blood Pressure 111/50 L Pulse Oximetry 95 Intake & Output 05/02/18 05/03/18 05/03/18 18:59 06:59 18:59 Intake Total 1112.5 / 1112.5 1712.5 / 1712.5 Output Total 750 / 750 800 / 800 Balance 362.5 / 362.5 912.5 / 912.5 Weight 90.2 kg Intake: IV 312.5 / 312.5 1412.5 / 1412.5 Potassium Chlor 20 mEq/NACL 0. 1000 / 1000 45% Inj 1,000 ML @ 100 mls/hr IV.CONT .Q10H [facility] Rx#:[id number] Zosyn 3.375 GM Premix 50 ML @ 50 / 50 150 / 150 100 mls/hr IV.SIG Q6H [facility] Rx#: [id number] Vancomycin Inj 1,250 MG In NS 262.5 / 262.5 262.5 / 262.5 Inj 250 ML @ 250 mls/hr IV.SIG Q12H [facility] Rx#:[id number] Oral 800 / 800 300 / 300 Output: Urine 750 / 750 Urine Amount (Catheter) 800 / 800 Indwelling Urethral Catheter 800 / 800 Narrative: GENERAL: Somnolent, patient wakes up for exam. Denies any pain. Comfortable. Disoriented. SKIN: Warm and dry. HEAD: Atraumatic. Normocephalic. CARDIOVASCULAR: Regular rate and rhythm. RESPIRATORY: No accessory muscle use. Clear to auscultation. Breath sounds equal bilaterally. GASTROINTESTINAL: Abdomen soft, non-tender, nondistended. MUSCULOSKELETAL: Extremities without clubbing, cyanosis, or edema. No obvious deformities. NEUROLOGICAL: No obvious cranial nerve deficits. Motor grossly within normal limits. Five out of 5 muscle strength in the arms and legs. Normal speech. PSYCHIATRIC: Poor historian Results Procedures completed during hospitalization: none Labs on day of discharge: Labs from last 24 hours 05/03/18 05/03/18 05/01/18 10:00 06:14 18:00 WBC 5.1 RBC 2.94 L Hgb 8.7 L Hct 25.1 L MCV 85.1 MCH 29.6 MCHC 34.8 RDW 17.1 Plt Count 126 L MPV 7.8 Neut % (Auto) 86.5 H Lymph % (Auto) 6.5 L [place] % (Auto) 6.3 Eos % (Auto) 0.5 Baso % (Auto) 0.2 Neut # (Auto) 4.4 Lymph # (Auto) 0.3 L [place] # (Auto) 0.3 Eos # (Auto) 0.0 Baso # (Auto) 0.0 WBC Differential . Differential Comment Auto diff final Sodium 138 Potassium 4.0 D Chloride 103 Carbon Dioxide 27.5 Anion Gap 8 BUN 21 H Creatinine 0.68 Estimated GFR Greater than 89 Random Glucose 138 H Calcium 9.0 Magnesium 2.0 Urine Color Ramonita Urine Clarity Hazy H Urine pH 5.0 Ur Specific [place] 1.024 Urine Protein 100 H Urine Glucose (UA) Negative Urine Ketones Negative Urine Occult Blood Large H Urine Nitrate Negative Urine Bilirubin Negative Urine Urobilinogen 2.0 H Ur Leukocyte Esterase Trace H Urine RBC 40 H Urine WBC 9 H Ur Squamous Epith Cells 2 Urine Bacteria Few H Hyaline Casts 30 Urine Mucus Many H Micro UA Comment Cath-culture ind Urine Culture Comments Cath-cult indicated Preliminary micro results at discharge 05/01/18 16:55 Aerobic Blood Culture - Preliminary Blood - Peripheral No growth in 2 days Anaerobic Blood Culture - Preliminary No growth in 2 days 05/01/18 17:00 Aerobic Blood Culture - Preliminary Blood - Peripheral No growth in 2 days Anaerobic Blood Culture - Preliminary No growth in 2 days - Impressions ITS Impressions Chest X-Ray 05/01/18 16:53 CONCLUSION: Mild basilar opacity which may represent developing airspace disease. Head CT 05/01/18 16:54 CONCLUSION: 1. 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 No evidence of acute infarct, hemorrhage, mass or edema. 3. No significant change compared to recent study on 04/24/2018. . Discharge Plan - Discharge Disposition Patient Disposition: 03 Discharge to SNF - Discharge Condition Condition: Stable - Discharge Order Discharge Orders: Discharge Order (Routine); Ordered 05/03/18 Ordered By: Susanne Yates - Physicians Team Primary Care Provider: Adriano Denton Attending Provider: Kane Orozco [facility]
[2018-05-03] MEDS ORDERED: Pharmacy Ordered Lab Info OTHER ONE (14:45)
== END 2018-05-03 15:43 ==
LOC: NEPE 16:39 → NEDA 16:39 → NEPGCP 20:40
PROVIDERS: ADMIT Family Medicine; ATTEND Family Medicine
DX: F32.9 Major depressive disorder, single episode, unspecified; R79.1 Abnormal coagulation profile; B95.2 Enterococcus as the cause of diseases classified elsewhere; F03.90 Unspecified dementia, unspecified severity, without behavioral disturbance, psychotic disturbance, mood disturbance, and anxiety; F41.9 Anxiety disorder, unspecified; E78.5 Hyperlipidemia, unspecified; R50.9 Fever, unspecified; M19.90 Unspecified osteoarthritis, unspecified site; Z79.82 Long term (current) use of aspirin; I10 Essential (primary) hypertension; R53.1 Weakness; R73.9 Hyperglycemia, unspecified; Z85.46 Personal history of malignant neoplasm of prostate; Z79.899 Other long term (current) drug therapy; N39.0 Urinary tract infection, site not specified; N32.81 Overactive bladder